=== PATIENT | female | born 1985 | race Hispanic/Latino ===

== ENCOUNTER 2018-12-27 14:20 | Observation (INO) | payer MEDICAID, OTHER ==
[2018-12-27] MEDS ORDERED: Dexamethasone 4 mg/1 ml ONE (15:15)
[2018-12-27 15:29] LABS: BASO # 0.1 K/uL (0.0-0.2); BASO % 0.8 % (0.0-2.0); EOS # 0.3 K/uL (0.0-0.7); EOS % 2.2 % (0.0-4.0); HEMOGLOBIN 12.5 g/dL (11.0-16.0); LYMPH # 2.5 K/uL (1.0-4.3); LYMPH % 19.3 % (20.0-40.0); MEAN CELL VOLUME 95.9 fL (81.0-99.0); MEAN CORPUSCULAR HGB CONC 32.4 g/dL (33.0-37.0); MEAN PLATELET VOLUME 8.3 fL (7.2-11.7); MONO # 0.8 K/uL (0.0-0.8); MONO % 6.3 % (0.0-10.0); NEUT # 9.4 K/uL (1.8-7.0); NEUT % 71.4 % (50.0-75.0); NRBC % 0.1 % (0.0-2.0); RBC 4.04 Mil/uL (3.80-5.20); RED CELL DISTRIBUTION WIDTH 13.1 % (11.5-14.5); WHITE BLOOD COUNT 13.2 K/uL (4.8-10.8)
[2018-12-27 15:38] LABS: PROTHROMBIN TIME 10.8 SECONDS (9.7-12.2)
[2018-12-27 15:49] LABS: INFLUENZA A B NEGATIVE FOR FLU A/B (NEGATIVE)
[2018-12-27 15:50] LABS: ALB/GLOB RATIO 1.3 (1.0-2.1); ALBUMIN 4.3 g/dL (3.5-5.0); ALT/SGPT 15 U/L (9-52); AST/SGOT 21 U/L (14-36); BLOOD UREA NITROGEN 12 mg/dL (7-17); CALCIUM 9.2 mg/dl (8.6-10.4); GFR NON-AFRICAN AMERICAN > 60
[2018-12-27] MEDS ORDERED: Iodixanol 320 MG/ML 100 ML BOTTLE IV ONE (16:32)
--- NOTE | 2018-12-27 17:07 | C.PDOC ---
History Of Present Illness 33 y/o female presents to the ER complaining of sore throat with associated right sided neck swelling which has been present for the past 2 weeks. Patient states that she noticed tonsillar swelling and exudates 2 weeks ago. At the [facility], she did not seek any medical evaluation because she does not have insurance. She thought the symptoms would resolve on their own. However, she notes that she has persistent right sided neck swelling which is making it difficult for her to swallow solid foods and fully open her mouth. Last night, patient had some difficulty breathing, but is unsure if that was due to anxiety or the swelling. Denies having fever, chills, headache, dizziness, visual changes, difficulty breathing, cough, nausea, vomiting, abdominal pain, or any other associated symptoms. Time Seen by Provider: 12/27/18 14:26 Chief Complaint (Nursing): ENT Problem History Per: Patient History/Exam Limitations: None Onset/Duration Of Symptoms: Days Current Symptoms Are (Timing): Still Present Severity: Moderate Past Medical History Reviewed: Historical Data, Nursing Documentation, Vital Signs Vital Signs: Last Vital Signs Temp 98.3 F 12/27/18 14:34 Pulse 77 12/27/18 14:34 Resp 18 12/27/18 14:34 BP 111/65 12/27/18 14:34 Pulse Ox 99 12/27/18 14:34 - Medical History PMH: No Chronic Diseases Surgical History: No Surg Hx Family History: States: No Known Family Hx - Social History Hx Alcohol Use: No Hx Substance Use: No Review Of Systems Except As Marked, All Systems Reviewed And Found Negative. Constitutional: Negative for: Fever, Chills Eyes: Negative for: Vision Change ENT: Positive for: Throat Pain, Throat Swelling Cardiovascular: Negative for: Chest Pain, Palpitations, Light Headedness Respiratory: Negative for: Cough, Shortness of Breath Gastrointestinal: Negative for: Nausea, Vomiting, Abdominal Pain Musculoskeletal: Positive for: Neck Pain, Other (right sided neck swelling). Negative for: Back Pain Skin: Negative for: Rash Neurological: Negative for: Weakness, Numbness, Headache, Dizziness Physical Exam - Physical Exam Appears: Well, Non-toxic, No Acute Distress Skin: Normal Color, Warm, Dry Head: Atraumatic, Normacephalic Eye(s): bilateral: Normal Inspection, PERRL, EOMI Nose: Normal Oral Mucosa: Moist Tongue: Normal Appearing Lips: Normal Appearing Gingiva: Normal Appearing Throat: Erythema, No Drooling, Other (bilateral tonsillar swelling, no uvula deviation; unable to fully assess as patient is unwilling to fully open mouth secondary to pain) Neck: Normal ROM, Supple, Other (right sided neck swelling; no meningeal signs) Lymphatic: Adenopathy (right sided anterior cervical lymphadenopathy) Cardiovascular: Rhythm Regular Respiratory: Normal Breath Sounds Gastrointestinal/Abdominal: Soft, No Tenderness Back: Normal Inspection, No CVA Tenderness Extremity: Normal ROM, Capillary Refill (<2s) Pulses: Left Radial: Normal, Right Radial: Normal Neurological/Psych: Oriented x3, Normal Speech, Normal Motor, Normal Sensation Gait: Steady ED Course And Treatment - Laboratory Results Result Diagrams: 12/28/18 11:31 12/28/18 11:31 Lab Results: PT 10.8 SECONDS (9.7-12.2) 12/27/18 15:22 INR 1.0 12/27/18 15:22 APTT 31 SECONDS (21-34) 12/27/18 15:22 Total Bilirubin 0.4 mg/dL (0.2-1.3) 12/27/18 15:22 AST 21 U/L (14-36) 12/27/18 15:22 ALT 15 U/L (9-52) 12/27/18 15:22 Alkaline Phosphatase 52 U/L (38-126) 12/27/18 15:22 Total Protein 7.7 g/dL (6.3-8.3) 12/27/18 15:22 Albumin 4.3 g/dL (3.5-5.0) 12/27/18 15:22 Globulin 3.4 gm/dL (2.2-3.9) 12/27/18 15:22 Albumin/Globulin Ratio 1.3 (1.0-2.1) 12/27/18 15:22 12/27/18 15:22 12/27/18 15:22 O2 Sat by Pulse Oximetry: 99 (RA) Pulse Ox Interpretation: Normal Medical Decision Making Medical Decision Making: Plan: --Labs --Rapid Flu Swab --Rapid Strep Test --CT-Neck Soft Tissue with IV contrast --Dexamethasone Bloodwork reviewed, significant for leukocytosis at 13.2, otherwise unremarkable Rapid strep negative Rapid flu negative CT reveals possible early right sided peritonsillar abscess. Will consult ENT Patient reports improvement in symptoms with dexamethasone [address] Quiroz, covering Dr. Haddad, who recommends Zosyn q6h, dexamethasone for 2 more doses, q8h and admission to hospitalist for Dr. Haddad to evaluate patient in the morning. Diet as tolerated by patient. [address] Travis who accepted patient for inpatient observation on regular floor with diagnosis of peritonsillar abscess. Patient notified of change in disposition. Resting comfortably in stretcher in NAD at this time, eating potato chips without difficulty. No drooling or respiratory difficulties. VSS. 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 - Scribe Statement The provider has reviewed the documentation as recorded by the Orvillee Virgil [place] Provider Attestation All medical record entries made by the Scribe were at my direction and personally dictated by me. I have reviewed the chart and agree that the record accurately reflects my personal performance of the history, physical exam, medical decision making, and the department course for this patient. I have also personally directed, reviewed, and agree with the discharge instructions and disposition.
--- NOTE | 2018-12-27 18:03 | CT ---
Date of service: 12/27/2018 PROCEDURE: CT NECK WITH CONTRAST HISTORY: Sore throat. Rule out abscess. COMPARISON: None available. TECHNIQUE: CT of the neck with intravenous contrast. Coronal and sagittal reformats generated. Intravenous contrast dose: Radiation dose: Total exam DLP = 323.73 mGy-cm. This CT exam was performed using one or more of the following dose reduction techniques: Automated exposure control, adjustment of the mA and/or kV according to patient size, and/or use of iterative reconstruction technique. FINDINGS: NASOPHARYNX: Unremarkable. SUPRAHYOID NECK: Mild enlarged palatine tonsils right somewhat greater than the left side which encroach medially slightly reducing the oropharyngeal airway.. There is a small approximately 13 mm x 3.3 mm elliptical-curvilinear shaped area of low attenuation adjacent to the right palatine tonsil best seen on axial series 2, image number 23 through 26.. Early peritonsillar abscess formation cannot be excluded. Clinical correlation recommended. There enlargement of the lingual tonsils which encroach posteriorly and inferiorly into the vallecula. Free margin of the epiglottis unremarkable.. INFRAHYOID NECK: Unremarkable larynx, hypopharynx, and supraglottic space. Vocal cords intact. MASS: None. GLANDS: Parotid and submandibular glands unremarkable. Normal size thyroid gland, without nodule. LYMPH NODES: There is an enlarged right-sided level 2 lymph node (right jugulodigastric region) which measures approximately 2.4 x 1.2 cm. Smaller left-sided lung jugular digastric lymph node present measuring approximately 1.5 x 7.1 cm. Few small level 1 lymph nodes are present. CERVICAL SPINE: No fracture or focal lesion. . Very minor early degenerative spondylosis present. VASCULAR STRUCTURES: Unremarkable. OTHER FINDINGS: None. IMPRESSION: There is mild enlargement of the palatine tonsils right slightly greater than left. Questionable small phlegmon or possibly early right-sided peritonsillar abscess as detailed above. Enlarged right-sided jugulodigastric lymph node as above..
[2018-12-27] MEDS ORDERED: Sodium Chloride 0.9% 1,000 ML IV SCH (19:00)
[2018-12-27] MEDS: Piperacillin/Tazobact 3.375 GM in Sodium Chloride 100 ML IVPB SCH (21:00)
[2018-12-27] MEDS: Dextrose 5%/0.45% NS 1,000 ML IV SCH (21:00)
[2018-12-27] MEDS: Dexamethasone 4 mg/1 ml IVP SCH (23:52)
--- NOTE | 2018-12-28 00:48 | CP.PCM.HP ---
<Roman Costa - Last Filed: 12/28/18 00:48> History of Present Illness - History of Present Illness History of Present Illness: PGY-1 History and Physical for Dr. Travis Patient is a 33 year old female with no significant PMHx who presents with chief complaint of sore throat with dysphagia. Patient states that on 12/14 she woke with a sore throat which as she describes, felt like strep throat. Due to recent job change and subsequent loss of insurance, she did not see a doctor at that time and has continued to have persistent symptoms since that time. She has had persistent sore throat with dysphagia that comes and goes, and has pain with speaking. She has at times had subjective fevers/chills, but did not have a temp when taken at home. Due to symptoms continuing to persist, patient presented to ER to seek treatment. PMHx: No significant PMHx Surgeries: Denies All: NKA Medications: No home meds Social: Denies tobacco, drug use. Occasional social alcohol. Family Hx: Noncontributory PMD: None Code: Full Code Present on Admission - Present on Admission Any Indicators Present on Admission: No Review of Systems - Constitutional Constitutional: absent: Chills, Fever - EENT Eyes: absent: Blurred Vision, Diplopia Ears: absent: Decreased Hearing, Dizziness Nose/Mouth/Throat: Change in Voice, Sore Throat, Throat Swelling (Significant throat swelling on the R side externally yesterday which subsided). absent: Nasal Congestion, Nasal Discharge, Sinus Pressure, Tongue Swelling, Neck Pain - Cardiovascular Cardiovascular: absent: Chest Pain, Dyspnea, Palpitations - Respiratory Respiratory: Cough. absent: Dyspnea - Gastrointestinal Gastrointestinal: absent: Constipation, Diarrhea, Nausea, Vomiting - Musculoskeletal Musculoskeletal: absent: Back Pain, Neck Pain - Neurological Neurological: absent: Dizziness, Numbness, Focal Weakness - Psychiatric Psychiatric: absent: Anxiety, Depression - Hematologic/Lymphatic Hematologic: absent: Easy Bleeding, Easy Bruising Past Patient History - Past Social History Smoking Status: Never Smoked - PSYCHIATRIC Hx Substance Use: No - SURGICAL HISTORY Hx Surgeries: No Meds Allergies/Adverse Reactions: Allergies Allergy/AdvReac Type Severity Reaction Status Date / Time No Known Allergies Allergy Unverified 12/27/18 14:37 Physical Exam - Constitutional Appears: Non-toxic, No Acute Distress - Head Exam Head Exam: ATRAUMATIC, NORMOCEPHALIC - Eye Exam Eye Exam: EOMI, Normal appearance - ENT Exam ENT Exam: Mucous Membranes Moist - Neck Exam Neck exam: Positive for: Full Rom. Negative for: Lymphadenopathy Additional comments: Increased fullness R para-tracheal - Respiratory Exam Respiratory Exam: Clear to Auscultation Bilateral, NORMAL BREATHING PATTERN. absent: Rhonchi, Wheezes - Cardiovascular Exam Cardiovascular Exam: REGULAR RHYTHM. absent: +S1, +S2 - GI/Abdominal Exam GI & Abdominal Exam: Normal Bowel Sounds, Soft. absent: Tenderness - Extremities Exam Extremities exam: Positive for: normal inspection. Negative for: pedal edema, tenderness - Neurological Exam Neurological exam: Alert, CN II-XII Intact, Oriented x3 - Psychiatric Exam Psychiatric exam: Normal Affect, Normal Mood - Skin Skin Exam: Dry, Intact, Normal Color Results - Vital Signs Recent Vital Signs: Last Vital Signs Temp 98.0 F 12/27/18 20:56 Pulse 102 H 12/27/18 20:56 Resp 20 12/27/18 20:56 BP 117/72 12/27/18 20:56 Pulse Ox 98 12/27/18 20:56 - Labs Result Diagrams: 12/27/18 15:22 12/27/18 15:22 Labs: Laboratory Results - last 24 hr 12/27/18 12/27/18 12/27/18 15:22 15:22 15:22 WBC 13.2 H RBC 4.04 Hgb 12.5 Hct 38.7 MCV 95.9 MCH 31.0 MCHC 32.4 L RDW 13.1 Plt Count 328 MPV 8.3 Neut % (Auto) 71.4 Lymph % (Auto) 19.3 L [place] % (Auto) 6.3 Eos % (Auto) 2.2 Baso % (Auto) 0.8 Neut # (Auto) 9.4 H Lymph # (Auto) 2.5 [place] # (Auto) 0.8 Eos # (Auto) 0.3 Baso # (Auto) 0.1 PT 10.8 INR 1.0 APTT 31 Sodium 137 Potassium 4.9 Chloride 102 Carbon Dioxide 26 Anion Gap 13 BUN 12 Creatinine 0.8 Est GFR ( Amer) > 60 Est GFR (Non-Af Amer) > 60 Random Glucose 87 Calcium 9.2 Total Bilirubin 0.4 AST 21 ALT 15 Alkaline Phosphatase 52 Total Protein 7.7 Albumin 4.3 Globulin 3.4 Albumin/Globulin Ratio 1.3 Influenza Typ A,B (EIA) Grp A Beta Strep Ag 12/27/18 15:22 WBC RBC Hgb Hct MCV MCH MCHC RDW Plt Count MPV Neut % (Auto) Lymph % (Auto) [place] % (Auto) Eos % (Auto) Baso % (Auto) Neut # (Auto) Lymph # (Auto) [place] # (Auto) Eos # (Auto) Baso # (Auto) PT INR APTT Sodium Potassium Chloride Carbon Dioxide Anion Gap BUN Creatinine Est GFR ( Amer) Est GFR (Non-Af Amer) Random Glucose Calcium Total Bilirubin AST ALT Alkaline Phosphatase Total Protein Albumin Globulin Albumin/Globulin Ratio Influenza Typ A,B (EIA) Negative for flu a/b Grp A Beta Strep Ag Negative Assessment & Plan - Assessment and Plan (Free Text) Assessment: Phlegmon vs peritonsilar abscess on CT soft tissue neck -CT soft tissue neck 12/27: There is mild enlargement of the palatine tonsils right slightly greater than left. Questionable small phlegmon or possibly early right-sided peritonsillar abscess. Enlarged right-sided jugulodigastric lymph node -ENT consulted, Dr. Haddad - f/u recs --NPO after midnight for possible procedure -WBC 13.2, afebrile -Throat culture, blood culture - f/u -Dexamethasone 10 mg IVP Q8 x2 doses -D5/.45NS @100cc/hr Abx: -Zosyn 3/375 gm IVPB Q6 PPx -DVT: Heparin 5000 U SC Q12 Assessment and plan discussed with Dr. Angy Costa, PGY-1 <Urbano Travis - Last Filed: 12/28/18 06:27> Results - Vital Signs Recent Vital Signs: Last Vital Signs Temp 98.8 F 12/28/18 00:13 Pulse 84 12/28/18 00:13 Resp 20 12/28/18 00:13 BP 114/71 12/28/18 00:13 Pulse Ox 99 12/28/18 01:35 - Labs Result Diagrams: 12/27/18 15:22 12/27/18 15:22 Labs: Laboratory Results - last 24 hr 12/27/18 12/27/18 12/27/18 15:22 15:22 15:22 WBC 13.2 H RBC 4.04 Hgb 12.5 Hct 38.7 MCV 95.9 MCH 31.0 MCHC 32.4 L RDW 13.1 Plt Count 328 MPV 8.3 Neut % (Auto) 71.4 Lymph % (Auto) 19.3 L [place] % (Auto) 6.3 Eos % (Auto) 2.2 Baso % (Auto) 0.8 Neut # (Auto) 9.4 H Lymph # (Auto) 2.5 [place] # (Auto) 0.8 Eos # (Auto) 0.3 Baso # (Auto) 0.1 PT 10.8 INR 1.0 APTT 31 Sodium 137 Potassium 4.9 Chloride 102 Carbon Dioxide 26 Anion Gap 13 BUN 12 Creatinine 0.8 Est GFR ( Amer) > 60 Est GFR (Non-Af Amer) > 60 Random Glucose 87 Calcium 9.2 Total Bilirubin 0.4 AST 21 ALT 15 Alkaline Phosphatase 52 Total Protein 7.7 Albumin 4.3 Globulin 3.4 Albumin/Globulin Ratio 1.3 Influenza Typ A,B (EIA) Grp A Beta Strep Ag 12/27/18 15:22 WBC RBC Hgb Hct MCV MCH MCHC RDW Plt Count MPV Neut % (Auto) Lymph % (Auto) [place] % (Auto) Eos % (Auto) Baso % (Auto) Neut # (Auto) Lymph # (Auto) [place] # (Auto) Eos # (Auto) Baso # (Auto) PT INR APTT Sodium Potassium Chloride Carbon Dioxide Anion Gap BUN Creatinine Est GFR ( Amer) Est GFR (Non-Af Amer) Random Glucose Calcium Total Bilirubin AST ALT Alkaline Phosphatase Total Protein Albumin Globulin Albumin/Globulin Ratio Influenza Typ A,B (EIA) Negative for flu a/b Grp A Beta Strep Ag Negative Assessment & Plan - Date & Time Date: 12/28/18 (I have seen and examined the patient. I agree with the findings and plan of care as documented by Dr. Costa. Patient with peritonsillar abscess. Dysphagia. Consult to ENT. Janeen for now. Dexamethasone given in ED. NPO. IVF. Monitor for acute changes.) Time: 06:26 Attending/Attestation - Attestation I have personally seen and examined this patient.: Yes I have fully participated in the care of the patient.: Yes I have reviewed all pertinent clinical information: Yes
[2018-12-28] MEDS: Piperacillin/Tazobact 3.375 GM in Sodium Chloride 100 ML IVPB SCH ×4 (02:43→18:32)
[2018-12-28] MEDS ORDERED: Lidocaine 1%/Epinephrine 1:100000 30 ml vial IJ ONE (07:45)
--- NOTE | 2018-12-28 08:26 | CP.PCM.PN ---
<Delfin Najera - Last Filed: 12/28/18 19:56> Subjective - Date & Time of Evaluation Date of Evaluation: 12/28/18 Time of Evaluation: 08:26 - Subjective Subjective: PGY-1 Medicine Progress Note for Dr. Doyle Patient seen and examined at bedside s/p peritonsillar abscess drainage. No acute overnight events reported. Patient in distress from pain, having difficulty swallowing or talking due to pain. No sob, swelling, or airway compromise noted. Patient given morphine x 1 for pain and later reevaluated, pain more under control. Per Dr. Haddad, patient set for OR tomorrow for tonsil removal. Objective - Vital Signs/Intake and Output Vital Signs (last 24 hours): Temp Pulse Resp BP Pulse Ox 98.8 F 84 20 114/71 99 12/28/18 00:13 12/28/18 00:13 12/28/18 00:13 12/28/18 00:13 12/28/18 05:35 Intake and Output: 12/28/18 12/28/18 06:59 18:59 Intake Total 800 Balance 800 - Medications Medications: Current Medications Heparin Sodium (Porcine) (Heparin) 5,000 units SC Q12 [facility] Last Admin: 12/27/18 21:05 Dose: Not Given Piperacillin Sod/Tazobactam (Sod 3.375 gm/ Sodium Chloride) 100 mls @ 200 mls/hr IVPB Q6H [facility]; Protocol Last Admin: 12/28/18 02:43 Dose: 200 mls/hr Dextrose/Sodium Chloride (Dextrose 5%/0.45% Ns 1000 Ml) 1,000 mls @ 100 mls/hr IV .Q10H [facility] Last Admin: 12/27/18 21:00 Dose: 100 mls/hr Influenza Virus Vaccine (Flucelvax Quad [id number] Syr) 60 mcg IM .ONCE ONE Stop: 12/29/18 10:01 Pneumococcal Polyvalent Vaccine (Pneumovax 23 Vaccine) 0.5 ml IM .ONCE ONE Stop: 12/29/18 10:01 - Labs Labs: 12/27/18 15:22 12/27/18 15:22 PT 10.8 SECONDS (9.7-12.2) 12/27/18 15:22 INR 1.0 12/27/18 15:22 APTT 31 SECONDS (21-34) 12/27/18 15:22 - Constitutional Appears: Non-toxic, No Acute Distress - Head Exam Head Exam: ATRAUMATIC, NORMAL INSPECTION, NORMOCEPHALIC - Eye Exam Eye Exam: EOMI, Normal appearance Pupil Exam: NORMAL ACCOMODATION - ENT Exam ENT Exam: Mucous Membranes Moist, Normal Exam Additional comments: R peritonsillar erythema at site of drainage, no purulent drainage, no airway compromise, no uvular deviation - Neck Exam Neck Exam: Full ROM, Normal Inspection. absent: Lymphadenopathy, Tenderness - Respiratory Exam Respiratory Exam: Clear to Ausculation Bilateral, NORMAL BREATHING PATTERN. absent: Accessory Muscle Use, Rales, Rhonchi, Wheezes, Respiratory Distress, Stridor - Cardiovascular Exam Cardiovascular Exam: REGULAR RHYTHM, +S1, +S2 - GI/Abdominal Exam GI & Abdominal Exam: Soft, Normal Bowel Sounds. absent: Distended, Firm, Guarding, Rigid, Tenderness, Rebound - Extremities Exam Extremities Exam: Full ROM, Normal Capillary Refill, Normal Inspection. absent: Calf Tenderness, Pedal Edema - Back Exam Back Exam: NORMAL INSPECTION - Neurological Exam Neurological Exam: Alert, Awake, Oriented x3 - Psychiatric Exam Psychiatric exam: Normal Affect, Normal Mood - Skin Skin Exam: Dry, Intact, Normal Color, Warm Assessment and Plan - Assessment and Plan (Free Text) Assessment: 33 year old F with no pmhx presenting with R sided peritonsilar abscess s/p drainage. Scheduled for OR tomorrow with Dr. Haddad for tonsil rem oval. Plan: Peritonsilar abscess s/p drainage -CT soft tissue neck (12/27): There is mild enlargement of the palatine tonsils right slightly greater than left. Questionable small phlegmon or possibly early right-sided peritonsillar abscess. Enlarged right-sided jugulodigastric lymph node -Throat culture negative for Group A strep infection -f/u Blood culture -ENT recs (Dr. Haddad) appreciated -pt scheduled for OR tomorrow for tonsil removal -NPO after MN for OR tomorrow -heparin held -CXR, EKG for preop clearance -Zosyn 3.375 gm IVPB Q6 [facility] -morphine 2 q6 prn for pain PPx, Diet Disposition -DVT: Heparin 5000 U SC I18--iuvf for OR -GI ppx: not indicated -Diet: NPO after MN Case discussed with Dr. Vivek Najera DO, PGY-1 <Carmen Doyle V - Last Filed: 12/28/18 23:29> Objective - Vital Signs/Intake and Output Vital Signs (last 24 hours): Temp Pulse Resp BP Pulse Ox 97.9 F 77 20 114/67 99 12/28/18 16:00 12/28/18 16:00 12/28/18 16:00 12/28/18 16:00 12/28/18 19:33 - Medications Medications: Current Medications Heparin Sodium (Porcine) (Heparin) 5,000 units SC Q12 [facility] Last Admin: 12/28/18 09:03 Dose: Not Given Piperacillin Sod/Tazobactam (Sod 3.375 gm/ Sodium Chloride) 100 mls @ 200 mls/hr IVPB Q6H [facility]; Protocol Last Admin: 12/28/18 18:32 Dose: 200 mls/hr Dextrose/Sodium Chloride (Dextrose 5%/0.45% Ns 1000 Ml) 1,000 mls @ 100 mls/hr IV .Q10H [facility] Last Admin: 12/28/18 21:29 Dose: 100 mls/hr Influenza Virus Vaccine (Flucelvax Quad [id number] Syr) 60 mcg IM .ONCE ONE Stop: 12/29/18 10:01 Morphine Sulfate (Morphine) 2 mg IVP Q6 PRN PRN Reason: Pain, Mild (1-3) Last Admin: 12/28/18 21:21 Dose: 2 mg Pneumococcal Polyvalent Vaccine (Pneumovax 23 Vaccine) 0.5 ml IM .ONCE ONE Stop: 12/29/18 10:01 - Labs Labs: 12/28/18 11:31 12/28/18 11:31 PT 10.8 SECONDS (9.7-12.2) 12/27/18 15:22 INR 1.0 12/27/18 15:22 APTT 31 SECONDS (21-34) 12/27/18 15:22 Attending/Attestation - Attestation I have personally seen and examined this patient.: Yes I have fully participated in the care of the patient.: Yes I have reviewed all pertinent clinical information, including history, physical exam and plan: Yes Notes (Text): Patient seen, examined and case discussed with day-time resident. Patient observed for peritonsilar abscess; underwent incisional drainage by ENT; re-evaluated in morning; recommended by tonsil removal by ENT; scheduled for tomorrow. Patient is on empiric IV abx to cover. Overnight, patient had received Decadron 10mg IV, negative Strep, chest xray appears benign; official report pending. Pending blood cultures. Suspect increasing leukocytosis by Iv steroid received overnight. Will continue to follow-up patient in conjunction with ENT. Patient has intermediate risk for intermediate procedure. Patient does not have prior medical history. Surgery and anesthesia discuss risk and benefits prior to OR. preoperative/intraoperative/postoperative managment per surgery.
[2018-12-28] MEDS: Dexamethasone 4 mg/1 ml IVP SCH (08:45)
[2018-12-28 11:44] LABS: BASO % 0.2 % (0.0-2.0); HEMOGLOBIN 12.4 g/dL (11.0-16.0); LYMPH # 0.9 K/uL (1.0-4.3); LYMPH % 6.1 % (20.0-40.0); MEAN CELL VOLUME 95.6 fL (81.0-99.0); MEAN CORPUSCULAR HEMOGLOBIN 31.2 pg (27.0-31.0); MEAN CORPUSCULAR HGB CONC 32.7 g/dL (33.0-37.0); MEAN PLATELET VOLUME 8.5 fL (7.2-11.7); MONO # 0.2 K/uL (0.0-0.8); MONO % 1.5 % (0.0-10.0); NEUT # 14.2 K/uL (1.8-7.0); NEUT % 92.2 % (50.0-75.0); PLATELET COUNT 295 K/uL (130-400); RBC 3.97 Mil/uL (3.80-5.20); WHITE BLOOD COUNT 15.3 K/uL (4.8-10.8)
[2018-12-28] MEDS: Dextrose 5%/0.45% NS 1,000 ML IV SCH ×2 (11:47→21:29)
[2018-12-28 12:17] LABS: ALB/GLOB RATIO 1.3 (1.0-2.1); ALT/SGPT 9 U/L (9-52); AST/SGOT 19 U/L (14-36); BLOOD UREA NITROGEN 10 mg/dL (7-17); GFR NON-AFRICAN AMERICAN > 60
[2018-12-28 12:29] LABS: LYMPHOCYTE 3 % (20-40); NEUTROPHIL 97 % (50-75); PLATELET ESTIMATE NORMAL (NORMAL); TOTAL CELLS COUNTED 100
--- NOTE | 2018-12-28 14:27 | OP ---
PROCEDURE DATE: 12/28/2018 PREOPERATIVE DIAGNOSIS: Right peritonsillar abscess with incision and drainage of right peritonsillar abscess. POSTOPERATIVE DIAGNOSIS: Right peritonsillar abscess with incision and drainage of right peritonsillar abscess. FINDINGS: Right peritonsillar abscess. SURGEON: Chuck Haddad MD DESCRIPTION OF PROCEDURE: The patient was placed in a seated position. The right peritonsillar area was injected with lidocaine with epinephrine. A #11 blade was used to make an incision in the right peritonsillar area. Blunt dissection was done. Pus was noted to be coming out. Bleeding was controlled with time. The patient tolerated the procedure well. Chuck Haddad MD
[2018-12-29] MEDS: Piperacillin/Tazobact 3.375 GM in Sodium Chloride 100 ML IVPB SCH ×3 (01:30→12:29)
[2018-12-29 05:19] LABS: BASO # 0.1 K/uL (0.0-0.2); BASO % 0.6 % (0.0-2.0); EOS # 0.1 K/uL (0.0-0.7); EOS % 0.7 % (0.0-4.0); HEMOGLOBIN 11.3 g/dL (11.0-16.0); LYMPH # 3.9 K/uL (1.0-4.3); MEAN CELL VOLUME 95.6 fL (81.0-99.0); MEAN CORPUSCULAR HEMOGLOBIN 30.5 pg (27.0-31.0); MEAN CORPUSCULAR HGB CONC 31.9 g/dL (33.0-37.0); MEAN PLATELET VOLUME 8.3 fL (7.2-11.7); MONO # 0.8 K/uL (0.0-0.8); NEUT # 7.8 K/uL (1.8-7.0); NEUT % 61.7 % (50.0-75.0); RBC 3.7 Mil/uL (3.80-5.20); RED CELL DISTRIBUTION WIDTH 13.1 % (11.5-14.5); WHITE BLOOD COUNT 12.6 K/uL (4.8-10.8)
[2018-12-29 05:47] LABS: ALB/GLOB RATIO 1.2 (1.0-2.1); ALBUMIN 3.5 g/dL (3.5-5.0); ALT/SGPT 17 U/L (9-52); AST/SGOT 15 U/L (14-36); BLOOD UREA NITROGEN 8 mg/dL (7-17); CALCIUM 8.6 mg/dl (8.6-10.4); GFR NON-AFRICAN AMERICAN > 60
[2018-12-29] MEDS: Dextrose 5%/0.45% NS 1,000 ML IV SCH ×2 (06:23→12:43)
[2018-12-29] MEDS ORDERED: Dexamethasone 4 mg/1 ml ONE (08:04)
[2018-12-29] MEDS ORDERED: Propofol 10 mg/ml Inj (20 ML) ONE ×2 (08:12)
[2018-12-29] MEDS: HYDROmorphone 0.5 mg/0.5 ml ISec IVP PRN ×2 (08:53→09:05)
[2018-12-29] MEDS ORDERED: Acetaminophen/Codeine elixir 120-12mg/5ml PO PRN (09:20)
--- NOTE | 2018-12-29 09:37 | RAD ---
Date of service: 12/28/2018 HISTORY: preop clearance COMPARISON: No prior. FINDINGS: LUNGS: No active pulmonary disease. PLEURA: No significant pleural effusion identified, no pneumothorax apparent. CARDIOVASCULAR: No aortic atherosclerotic calcification present. Normal cardiac size. No pulmonary vascular congestion. OSSEOUS STRUCTURES: No significant abnormalities. VISUALIZED UPPER ABDOMEN: Normal. OTHER FINDINGS: None. IMPRESSION: No active disease.
[2018-12-29] MEDS ORDERED: Pneumococcal 23-Valent Vaccine IM ONE (10:00)
[2018-12-29] MEDS ORDERED: Influenza Vaccine 60 mcg/0.5 mL SYR (4YR UP) IM ONE (10:00)
--- NOTE | 2018-12-29 10:27 | CP.PCM.PN ---
Objective - Vital Signs/Intake and Output Vital Signs (last 24 hours): Temp Pulse Resp BP Pulse Ox 97.5 F L 69 8 L 130/87 96 12/29/18 09:45 12/29/18 09:45 12/29/18 09:45 12/29/18 09:45 12/29/18 09:45 Intake and Output: 12/29/18 12/29/18 06:59 18:59 Intake Total 1300 Balance 1300 - Medications Medications: Current Medications Acetaminophen/Codeine Phosphate (Tylenol/Codeine Elixir) 5 ml PO Q6 PRN PRN Reason: Pain, moderate (4-7) Stop: 01/05/19 09:21 Heparin Sodium (Porcine) (Heparin) 5,000 units SC Q12 [facility] Last Admin: 12/28/18 09:03 Dose: Not Given Hydromorphone HCl (Dilaudid) 0.5 mg IVP Q15M PRN PRN Reason: Pain, moderate (4-7) Stop: 12/29/18 10:47 Last Admin: 12/29/18 09:05 Dose: 0.5 mg Piperacillin Sod/Tazobactam (Sod 3.375 gm/ Sodium Chloride) 100 mls @ 200 mls/hr IVPB Q6H [facility]; Protocol Last Admin: 12/29/18 06:23 Dose: 200 mls/hr Dextrose/Sodium Chloride (Dextrose 5%/0.45% Ns 1000 Ml) 1,000 mls @ 100 mls/hr IV .Q10H [facility] Last Admin: 12/29/18 06:23 Dose: 100 mls/hr Metoclopramide HCl (Reglan) 10 mg IVP ONCE PRN PRN Reason: Nausea/Vomiting Stop: 12/29/18 10:47 Morphine Sulfate (Morphine) 2 mg IVP Q6 PRN PRN Reason: Pain, Mild (1-3) Last Admin: 12/29/18 10:24 Dose: 2 mg Ondansetron HCl (Zofran Inj) 4 mg IVP ONCE PRN PRN Reason: Nausea/Vomiting Stop: 12/29/18 10:47 - Labs Labs: 12/29/18 05:15 12/29/18 05:15 PT 10.8 SECONDS (9.7-12.2) 12/27/18 15:22 INR 1.0 12/27/18 15:22 APTT 31 SECONDS (21-34) 12/27/18 15:22
[2018-12-29 16:17] VITALS: BP 123/64; PULSE 65; RESP 20; TEMP 98.4; O2SAT 100
--- NOTE | 2018-12-29 17:56 | CP.PCM.DIS ---
<Kae Hinojosa - Last Filed: 12/29/18 17:52> Provider - Provider Date of Admission: 12/27/18 19:31 Attending physician: Carmen Doyle DO Consults: 12/27/18 18:49 Otolaryngology Consult Routine Consulting Provider: Chuck Haddad Consulting Physician: Chuck Haddad Reason for Consult: Peritonsillar Abscess, Leukocytosis Time Spent in preparation of Discharge (in minutes): 40 Hospital Course - Lab Results Lab Results: Micro Results 12/27/18 19:45 Blood Blood Culture - Preliminary NO GROWTH AFTER 24 HOURS 12/27/18 19:40 Blood Blood Culture - Preliminary NO GROWTH AFTER 24 HOURS 12/27/18 15:22 Throat Group A Strep Throat Culture - Final NO BETA STREP GROUP A ISOLATED. Most Recent Lab Values WBC 12.6 K/uL (4.8-10.8) H 12/29/18 05:15 RBC 3.70 Mil/uL (3.80-5.20) L 12/29/18 05:15 Hgb 11.3 g/dL (11.0-16.0) 12/29/18 05:15 Hct 35.4 % (34.0-47.0) 12/29/18 05:15 MCV 95.6 fL (81.0-99.0) 12/29/18 05:15 MCH 30.5 pg (27.0-31.0) 12/29/18 05:15 MCHC 31.9 g/dL (33.0-37.0) L 12/29/18 05:15 RDW 13.1 % (11.5-14.5) 12/29/18 05:15 Plt Count 275 K/uL (130-400) 12/29/18 05:15 MPV 8.3 fL (7.2-11.7) 12/29/18 05:15 Neut % (Auto) 61.7 % (50.0-75.0) 12/29/18 05:15 Lymph % (Auto) 31.0 % (20.0-40.0) 12/29/18 05:15 Amite % (Auto) 6.0 % (0.0-10.0) 12/29/18 05:15 Eos % (Auto) 0.7 % (0.0-4.0) 12/29/18 05:15 Baso % (Auto) 0.6 % (0.0-2.0) 12/29/18 05:15 Neut # (Auto) 7.8 K/uL (1.8-7.0) H 12/29/18 05:15 Lymph # (Auto) 3.9 K/uL (1.0-4.3) 12/29/18 05:15 Amite # (Auto) 0.8 K/uL (0.0-0.8) 12/29/18 05:15 Eos # (Auto) 0.1 K/uL (0.0-0.7) 12/29/18 05:15 Baso # (Auto) 0.1 K/uL (0.0-0.2) 12/29/18 05:15 Neutrophils % (Manual) 97 % (50-75) H 12/28/18 11:31 Lymphocytes % (Manual) 3 % (20-40) L 12/28/18 11:31 Monocytes % (Manual) TEST NOT PERFORMED 12/28/18 11:31 Platelet Estimate Normal (NORMAL) 12/28/18 11:31 RBC Morphology Normal 12/28/18 11:31 PT 10.8 SECONDS (9.7-12.2) 12/27/18 15:22 INR 1.0 12/27/18 15:22 APTT 31 SECONDS (21-34) 12/27/18 15:22 Sodium 138 mmol/L (132-148) 12/29/18 05:15 Potassium 5.0 mmol/L (3.6-5.2) 12/29/18 05:15 Chloride 107 mmol/L (98-107) 12/29/18 05:15 Carbon Dioxide 25 mmol/L (22-30) 12/29/18 05:15 Anion Gap 11 (10-20) 12/29/18 05:15 BUN 8 mg/dL (7-17) 12/29/18 05:15 Creatinine 0.7 mg/dL (0.7-1.2) 12/29/18 05:15 Est GFR ( Amer) > 60 12/29/18 05:15 Est GFR (Non-Af Amer) > 60 12/29/18 05:15 Random Glucose 119 mg/dL (65-105) H D 12/29/18 05:15 Calcium 8.6 mg/dl (8.6-10.4) 12/29/18 05:15 Total Bilirubin 0.3 mg/dL (0.2-1.3) 12/29/18 05:15 AST 15 U/L (14-36) 12/29/18 05:15 ALT 17 U/L (9-52) 12/29/18 05:15 Alkaline Phosphatase 40 U/L (38-126) 12/29/18 05:15 Total Protein 6.4 g/dL (6.3-8.3) 12/29/18 05:15 Albumin 3.5 g/dL (3.5-5.0) 12/29/18 05:15 Globulin 2.9 gm/dL (2.2-3.9) 12/29/18 05:15 Albumin/Globulin Ratio 1.2 (1.0-2.1) 12/29/18 05:15 Urine HCG, Qual Negative (NEGATIVE) 12/29/18 01:47 Influenza Typ A,B (EIA) Negative for flu a/b (NEGATIVE) 12/27/18 15:22 Grp A Beta Strep Ag Negative (NEGATIVE) 12/27/18 15:22 - Hospital Course Hospital Course: Patient is a 33 year old female with no significant PMHx who presents with chief complaint of sore throat with dysphagia. Patient states that on 12/14 she woke with a sore throat which as she describes, felt like strep throat. Due to recent job change and subsequent loss of insurance, she did not see a doctor at that time and has continued to have persistent symptoms since that time. She has had persistent sore throat with dysphagia that comes and goes, and has pain with speaking. She has at times had subjective fevers/chills, but did not have a temp when taken at home. Due to symptoms continuing to persist, patient presented to ER to seek treatment. PMHx: No significant PMHx Surgeries: Denies All: NKA Medications: No home meds Social: Denies tobacco, drug use. Occasional social alcohol. Family Hx: Noncontributory PMD: None Code: Full Code Hospital Course: Patient presented to the ER for sore throat and dysphagia. CT soft tissue of the neck showed mild enlargement of the palatine tonsils right slightly greater than left. Questionable small phlegmon or possibly early right-sided peritonsillar abscess. Enlarged right-sided jugulodigastric lymph node. ENT specialist, Dr. Haddad was consulted. Patient was started on Zosyn and given 2 doses of dexamethasone. Patient was diagnosed with a peritonsilar abscess. Throat culture was negative for group A infection and blood cultures were negative. Patient was scheduled for a tonsillectomy with Dr. Haddad 12/29/18. Patient was seen and evaluated s/p procedure. Patient stated although her pain was a 4/10 she was feeling significantly better. Patient states she was ready to go home. Patient also stated she was starting to have vaginal pruritis as she normally does have yeast infection after taking antibiotics. Patient was given Diflucan 100mg po dose once prior to discharge. Spoke with Dr. Haddad who stated patient was stable for discharge and to continue with oral antibiotics at home. Discussed with patient to start Clindamycin 600mg one tablet every 6 hours for 14 days, take Motrin or Tylenol every 6 hours as needed for pain. Discussed with patient to eat yogurt daily or take a probiotic twice a day. Patient is also to follow up with Dr. Haddad in the office in one week. This is a summary of the patient's hospital course. Please refer to the EMR for complete details. Peritonsilar abscess s/p drainage -CT soft tissue neck (12/27): There is mild enlargement of the palatine tonsils right slightly greater than left. Questionable small phlegmon or possibly early right-sided peritonsillar abscess. Enlarged right-sided jugulodigastric lymph node -Throat culture negative for Group A strep infection -f/u Blood culture -ENT recs (Dr. Haddad) appreciated -pt scheduled for OR tomorrow for tonsil removal -NPO after MN for OR 12/29/18 -heparin held -CXR, EKG for preop clearance -Zosyn 3.375 gm IVPB Q6 FRACISCO -morphine 2 q6 prn for pain Discharge Exam - Head Exam Head Exam: ATRAUMATIC, NORMAL INSPECTION, NORMOCEPHALIC - Eye Exam Eye Exam: EOMI, Normal appearance - ENT Exam Additional comments: Limited ROM of maxilla s/p tonsillectomy - Respiratory Exam Respiratory Exam: Clear to PA & Lateral, NORMAL BREATHING PATTERN - Cardiovascular Exam Cardiovascular Exam: REGULAR RHYTHM, +S1, +S2 - GI/Abdominal Exam GI & Abdominal Exam: Normal Bowel Sounds, Soft. absent: Tenderness - Extremities Exam Extremities exam: normal inspection - Neurological Exam Neurological exam: Alert, Oriented x3 - Psychiatric Exam Psychiatric exam: Normal Affect, Normal Mood - Skin Skin Exam: Normal Color Discharge Plan - Discharge Medications Prescriptions: RX: Clindamycin [Cleocin] 500 mg PO Q6 14 Days cap - Follow Up Plan Condition: STABLE Disposition: HOME/ ROUTINE Instructions: Leukocytosis (DC), Leukocytosis (GEN), Abscess (GEN) Additional Instructions: Please continue antibiotic: Clindamycin one tablet every 6 hours for 14 days Please eat yogurt daily. Please take Motrin or Tylenol as needed for pain. Please follow up with Dr. Haddad in 1 week. Thank you for allowing us to take part in your care. Referrals: Chuck Haddad MD [Staff Provider] - <Carmen Doyle V - Last Filed: 01/01/19 12:29> Provider - Provider Date of Admission: 12/27/18 19:31 Attending physician: Carmen Doyle DO Consults: 12/27/18 18:49 Otolaryngology Consult Routine Consulting Provider: Chuck Haddad Consulting Physician: Chuck Haddad Reason for Consult: Peritonsillar Abscess, Leukocytosis Hospital Course - Lab Results Lab Results: Micro Results 12/27/18 19:45 Blood Blood Culture - Preliminary NO GROWTH AFTER 4 DAYS 12/27/18 19:40 Blood Blood Culture - Preliminary NO GROWTH AFTER 4 DAYS 12/27/18 15:22 Throat Group A Strep Throat Culture - Final NO BETA STREP GROUP A ISOLATED. Most Recent Lab Values WBC 12.6 K/uL (4.8-10.8) H 12/29/18 05:15 RBC 3.70 Mil/uL (3.80-5.20) L 12/29/18 05:15 Hgb 11.3 g/dL (11.0-16.0) 12/29/18 05:15 Hct 35.4 % (34.0-47.0) 12/29/18 05:15 MCV 95.6 fL (81.0-99.0) 12/29/18 05:15 MCH 30.5 pg (27.0-31.0) 12/29/18 05:15 MCHC 31.9 g/dL (33.0-37.0) L 12/29/18 05:15 RDW 13.1 % (11.5-14.5) 12/29/18 05:15 Plt Count 275 K/uL (130-400) 12/29/18 05:15 MPV 8.3 fL (7.2-11.7) 12/29/18 05:15 Neut % (Auto) 61.7 % (50.0-75.0) 12/29/18 05:15 Lymph % (Auto) 31.0 % (20.0-40.0) 12/29/18 05:15 Amite % (Auto) 6.0 % (0.0-10.0) 12/29/18 05:15 Eos % (Auto) 0.7 % (0.0-4.0) 12/29/18 05:15 Baso % (Auto) 0.6 % (0.0-2.0) 12/29/18 05:15 Neut # (Auto) 7.8 K/uL (1.8-7.0) H 12/29/18 05:15 Lymph # (Auto) 3.9 K/uL (1.0-4.3) 12/29/18 05:15 Amite # (Auto) 0.8 K/uL (0.0-0.8) 12/29/18 05:15 Eos # (Auto) 0.1 K/uL (0.0-0.7) 12/29/18 05:15 Baso # (Auto) 0.1 K/uL (0.0-0.2) 12/29/18 05:15 Neutrophils % (Manual) 97 % (50-75) H 12/28/18 11:31 Lymphocytes % (Manual) 3 % (20-40) L 12/28/18 11:31 Monocytes % (Manual) TEST NOT PERFORMED 12/28/18 11:31 Platelet Estimate Normal (NORMAL) 12/28/18 11:31 RBC Morphology Normal 12/28/18 11:31 PT 10.8 SECONDS (9.7-12.2) 12/27/18 15:22 INR 1.0 12/27/18 15:22 APTT 31 SECONDS (21-34) 12/27/18 15:22 Sodium 138 mmol/L (132-148) 12/29/18 05:15 Potassium 5.0 mmol/L (3.6-5.2) 12/29/18 05:15 Chloride 107 mmol/L (98-107) 12/29/18 05:15 Carbon Dioxide 25 mmol/L (22-30) 12/29/18 05:15 Anion Gap 11 (10-20) 12/29/18 05:15 BUN 8 mg/dL (7-17) 12/29/18 05:15 Creatinine 0.7 mg/dL (0.7-1.2) 12/29/18 05:15 Est GFR ( Amer) > 60 12/29/18 05:15 Est GFR (Non-Af Amer) > 60 12/29/18 05:15 Random Glucose 119 mg/dL (65-105) H D 12/29/18 05:15 Calcium 8.6 mg/dl (8.6-10.4) 12/29/18 05:15 Total Bilirubin 0.3 mg/dL (0.2-1.3) 12/29/18 05:15 AST 15 U/L (14-36) 12/29/18 05:15 ALT 17 U/L (9-52) 12/29/18 05:15 Alkaline Phosphatase 40 U/L (38-126) 12/29/18 05:15 Total Protein 6.4 g/dL (6.3-8.3) 12/29/18 05:15 Albumin 3.5 g/dL (3.5-5.0) 12/29/18 05:15 Globulin 2.9 gm/dL (2.2-3.9) 12/29/18 05:15 Albumin/Globulin Ratio 1.2 (1.0-2.1) 12/29/18 05:15 Urine HCG, Qual Negative (NEGATIVE) 12/29/18 01:47 Influenza Typ A,B (EIA) Negative for flu a/b (NEGATIVE) 12/27/18 15:22 Grp A Beta Strep Ag Negative (NEGATIVE) 12/27/18 15:22 Attending/Attestation - Attestation I have personally seen and examined this patient.: Yes I have fully participated in the care of the patient.: Yes I have reviewed all pertinent clinical information, including history, physical exam and plan: Yes Notes (Text): This is late computer entry for 12/29/18. Patient seen, examined, and case discussed with day-time resident. Patient seen post OR s/p tonsillectomy. Patient is in no acute distress. Noted soft spoken and sore throat which is expected. patient accompanied by boyfriend at bedside. Per ENT patient is stable for discharge recommended to follow-up in the office as outpatient. Patient notes she is "allergic" to penicillin; she has not had adverse reaction while being hospitalized. We have updated in the EMR, and discharged her on Clindamycin. Patient's blood cultures are negative, strep is negative and white count is downtrending. Patient noted for vaginal itchiness likely secondary sensitivitiy from IV abx; will give dose of Diflucan prior to discharge and recommend Monistat 7 while she is at home. This is brief summary of patient's hospitalization. Please see EMR for full detail of record. Discharge Diagnoses: 1) Peritonsilar Abscess Tonsillitis Assessment/plan * s/p I and D and tonsillectomy by ENT * Per ENT stable for discharge * Patient received IV zoysn while hospitalized, no allergic reaction observed; updated allergy in emr; patient discharged on clindamycin PO and monistat 7 to cover for yeast infection * Blood cultures are negative * White count downtrending; noted paritally influenced by steroid she received on admission
--- NOTE | 2018-12-29 18:44 | OP ---
PROCEDURE DATE: 12/29/2018 PREOPERATIVE DIAGNOSIS: Peritonsillar abscess./tonsillitis. POSTOPERATIVE DIAGNOSIS: Peritonsillar abscess./tonsillitis. PROCEDURE: Tonsillectomy. FINDINGS: Infected tonsils bilaterally. DESCRIPTION OF PROCEDURE: The patient was brought into room, placed in supine position, anesthesia initiated through an ET tube. The patient was draped in usual manner. Mouth gag was placed in oral cavity, opened, suspended on [employer] recruiting coordinator the usual manner. Right tonsil was grabbed, pulled medially. Incision was made in the anterior tonsillar pillar using coblation. Dissection was done between tonsil and tonsillar fossa using coblation until the tonsil was removed. Bleeding was controlled using coblation. Next, the other tonsil was grabbed, pulled medially. Incision was made in the anterior tonsillar pillar using coblation. Dissection was done between tonsil and tonsillar fossa using coblation until the tonsil was removed. Bleeding was controlled using coblation. Both tonsillar beds were rubbed vigorously with coblation wand. No bleeding was noted. Mouth gag was let down for 30 seconds and put back up, no bleeding was noted. Mouth gag was taken down and removed. The patient was taken off anesthesia and taken to recovery room in stable manner. Chuck Haddad MD
--- NOTE | 2018-12-31 06:55 | CON ---
DATE: 12/29/2018 Possible peritonsillar abscess. HISTORY: This is a 33-year-old female with 2-week history of right throat pain, severe constant. The patient also has trismus and had incision and drainage of a possible peritonsillar abscess that , CAT scan was attempted yesterday. The patient since then did not improve. She continues to have trismus and throat pain and the risks and benefits of tonsillectomy were discussed with her. The patient would like to have a tonsillectomy done in order to try to alleviate her symptoms. Chuck Haddad MD
--- NOTE | 2019-01-02 12:15 | CARD ---
APPROVED REPORT Date of service: 12/28/2018 EKG Measurement Heart [id number] [id number] <Conclusion> Sinus rhythm with sinus arrhythmia with short UT Otherwise normal ECG
== END 2018-12-29 18:10 | disposition home or self-care (01) ==
LOC: C.ER 14:20 → C.9E 19:31 → C.3T 20:05
PROVIDERS: ADMIT Hospitalist; ATTEND Hospitalist
DX: J36 Peritonsillar abscess (principal); J03.91 Acute recurrent tonsillitis, unspecified
CPT/HCPCS: 36415; 42700; 42826; 70491; 71045; 80053; 81025; 84703; 85025; 85610; 85730; 87040; 87070; 87430; 87804; 88304; 90471; 90674; 90732; 96374; 96375; 96376; 99284; G0378; J1100; J1170; J2001; J2270; J2405; J2543; J2704; J3010; J7030; J7042; Q9967

== ENCOUNTER 2019-01-06 23:32 | Emergency (ER) | payer SELFPAY ==
[2019-01-06 23:43] VITALS: TEMP 97.8
[2019-01-06] MEDS ORDERED: Dexamethasone 4 mg/1 ml IM STA (23:51)
[2019-01-06] MEDS ORDERED: Acetaminophen-Codeine 300/30 mg Tab PO STA (23:51)
--- NOTE | 2019-01-06 23:53 | C.PDOC ---
History Of Present Illness 33 year old female presents to the ED c/o throat pain, difficulty swallowing and scant blood sputum. Patient is 8 days post operative for tonsillectomy done by Dr. Haddad. Patient had tonsillectomy due to chronic throat infections. Patient saw Dr. Haddad yesterday with a normal follow up. Patient denies fever, chills, headache, loose bloody stools, nausea, vomit, diarrhea. Time Seen by Provider: 01/06/19 23:39 Chief Complaint (Nursing): ENT Problem History Per: Patient History/Exam Limitations: None Onset/Duration Of Symptoms: Days Current Symptoms Are (Timing): Still Present Quality (Mouth/Throat): Redness Anticoagulant/Antiplatlet Use?: No Recent Aspirin Use: No Past Medical History Reviewed: Historical Data, Nursing Documentation, Vital Signs Vital Signs: Last Vital Signs Temp 97.8 F 01/06/19 23:40 Pulse 117 H 01/06/19 23:40 Resp 20 01/06/19 23:40 BP 131/88 01/06/19 23:40 Pulse Ox 100 01/06/19 23:40 - Medical History PMH: No Chronic Diseases Surgical History: Tonsillectomy Family History: States: Unknown Family Hx - Social History Hx Alcohol Use: No Hx Substance Use: No - Immunization History Hx Tetanus Toxoid Vaccination: No Hx Influenza Vaccination: No Hx Pneumococcal Vaccination: No Review Of Systems Constitutional: Negative for: Fever, Chills ENT: Positive for: Throat Pain, Throat Swelling Respiratory: Negative for: Cough, Shortness of Breath Gastrointestinal: Negative for: Nausea, Vomiting, Abdominal Pain Skin: Negative for: Rash Neurological: Negative for: Weakness, Numbness Physical Exam - Physical Exam Appears: Non-toxic, No Acute Distress, Other (intermittently calms and cooperative then tearfull and anxious) Skin: Normal Color, Warm, Dry Head: Atraumatic, Normacephalic Eye(s): bilateral: Normal Inspection Oral Mucosa: Moist Throat: No Exudate, No Drooling (typical post op tonsillectomy cauterized edges, scant blood right upper tonsil), Other Neck: Normal ROM, Supple Chest: Symmetrical Cardiovascular: Rhythm Regular Respiratory: Normal Breath Sounds, No Rales, No Rhonchi, No Wheezing Gastrointestinal/Abdominal: Soft, No Tenderness, No Guarding, No Rebound Extremity: Normal ROM, No Tenderness, No Swelling Neurological/Psych: Oriented x3, Normal Speech, Normal Cognition Gait: Steady ED Course And Treatment O2 Sat by Pulse Oximetry: 100 (ON RA) Pulse Ox Interpretation: Normal Medical Decision Making Medical Decision Making: post op Tonsillectomy POD #8 healing nicely seen by Dr. Haddad yesterday w good checkup occ scant blood tinged not clinically dehydrated speaking fluidly without pain Disposition Doctor Will See Patient In The: Office Counseled Patient/Family Regarding: Studies Performed, Diagnosis - Disposition Referrals: [facility] [Outside] [facility] [Outside] [facility] [Outside] Chuck Haddad MD [Staff Provider] - Disposition: HOME/ ROUTINE Disposition Time: 23:53 Condition: GOOD Additional Instructions: 12.5 ml of tylenol/codeine elixer liquid every 6 hours as needed for throat pain. continue to sip cold/ice liquids Decadron 4 mg IM given in ED (powerful long-acting steroid) Tylenol w Codeine elixer given in ED follow-up w Dr. Haddad as needed. Prescriptions: Acetaminophen/Codeine [Tylenol/Codeine elixir] 12.5 ml PO Q6H #6 udc Instructions: Postoperative Pain (DC), Managing Pain After Surgery Forms: Settle (French) - Clinical Impression Clinical Impression: Post-tonsillectomy pain - Scribe Statement The provider has reviewed the documentation as recorded by the Scribe Brandon Avila All medical record entries made by the Scribe were at my direction and personally dictated by me. I have reviewed the chart and agree that the record accurately reflects my personal performance of the history, physical exam, medical decision making, and the department course for this patient. I have also personally directed, reviewed, and agree with the discharge instructions and disposition.
[2019-01-06] MEDS ORDERED: Dexamethasone 4 mg/1 ml ONE (23:57)
[2019-01-06] MEDS ORDERED: Acetaminophen-Codeine 300/30 mg Tab PO ONE (23:58)
[2019-01-07] MEDS ORDERED: Acetaminophen/Codeine elixir 120-12mg/5ml PO STA (00:05)
[2019-01-07] MEDS ORDERED: Acetaminophen/Codeine elixir 120-12mg/5ml ONE (00:13)
[2019-01-07 01:01] VITALS: BP 122/76; PULSE 75; RESP 18; O2SAT 99
== END 2019-01-07 01:01 | disposition home or self-care (01) ==
LOC: C.ER 23:32
DX: G89.18 Other acute postprocedural pain (principal)
CPT/HCPCS: 96372; 99283; J1100

== ENCOUNTER 2019-01-07 07:18 | Observation (INO) | payer SELFPAY ==
--- NOTE | 2019-01-07 07:27 | C.PDOC ---
History Of Present Illness 33 year old female presents to ED with bleeding and clots coming from the mouth. Patient is 9 days post-op from a tonsillectomy. Patient states that she experienced pain and bleeding this morning. Dr. Haddad told her to come to [facility] ED. Dr. Eusebio Jhaveri at bedside requesting to take patient to the OR. Patient denies fever,chills, and diaphoresis. Time Seen by Provider: 01/07/19 07:24 Chief Complaint (Nursing): Medical Clearance History Per: Patient History/Exam Limitations: no limitations Onset/Duration Of Symptoms: Days (1) Current Symptoms Are (Timing): Still Present Past Medical History Reviewed: Historical Data, Nursing Documentation, Vital Signs Vital Signs: Last Vital Signs Temp 97.4 F L 01/07/19 07:22 Pulse 139 H 01/07/19 07:22 Resp 17 01/07/19 07:22 BP 114/81 01/07/19 07:22 Pulse Ox 95 01/07/19 07:22 - Medical History PMH: No Chronic Diseases Surgical History: Tonsillectomy Family History: States: Unknown Family Hx - Social History Hx Alcohol Use: No Hx Substance Use: No - Immunization History Hx Tetanus Toxoid Vaccination: No Hx Influenza Vaccination: No Hx Pneumococcal Vaccination: No Review Of Systems Constitutional: Negative for: Fever, Chills, Sweats ENT: Positive for: Mouth Pain, Other (bleeding and clots coming from the mouth) Respiratory: Negative for: Cough Skin: Negative for: Rash Neurological: Negative for: Weakness, Numbness, Dizziness Physical Exam - Physical Exam Appears: Well, Non-toxic, No Acute Distress Skin: Normal Color, No Rash Head: Atraumatic, Normacephalic Eye(s): bilateral: Normal Inspection Throat: Other (post op granulations, no signs of infection, blood clots, no active bleeding) Chest: Symmetrical Cardiovascular: Rhythm Regular Respiratory: Normal Breath Sounds Neurological/Psych: Oriented x3, Normal Speech, Normal Cognition ED Course And Treatment - Laboratory Results Result Diagrams: 01/07/19 10:45 01/07/19 10:45 O2 Sat by Pulse Oximetry: 95 (in RA) Progress Note: Patient admitted to Dr. Haddad's service. Patient sent to the OR. Disposition - Disposition Disposition: Still A Patient Disposition Time: 07:28 Condition: STABLE - Clinical Impression Clinical Impression: Post-tonsillectomy hemorrhage - PA / INTEGRATION SOFTWARE DEVELOPER / Resident Statement MD/DO has reviewed & agrees with the documentation as recorded. (Sofy Boogie) - Scribe Statement The provider has reviewed the documentation as recorded by the Scribe (Sofy Boogie) All medical record entries made by the Scribe were at my direction and person ally dictated by me. I have reviewed the chart and agree that the record accurately reflects my personal performance of the history, physical exam, medical decision making, and the department course for this patient. I have also personally directed, reviewed, and agree with the discharge instructions and disposition. Decision To Admit - Pt Status Changed To: Hospital Disposition Of: SDS- Endo,OR,Cath,IR - . Bed Request Type: Same Day Surgery Admitting Physician: Chuck Haddad Patient Diagnosis: Post-tonsillectomy hemorrhage
[2019-01-07] MEDS ORDERED: Succinylcholine Chloride 20 mg/ml Syr (5 ml) IV ONE (07:56)
[2019-01-07] MEDS ORDERED: Propofol 10 mg/ml Inj (20 ML) ONE (07:56)
[2019-01-07] MEDS ORDERED: Phenylephrine 10 mg/ml Inj ONE (08:05)
[2019-01-07] MEDS ORDERED: Morphine 10 mg/5 ml Oral Soln PO PRN (08:24)
[2019-01-07] MEDS ORDERED: Dextrose 5%/0.45% NS 1,000 ML IV SCH (08:30)
[2019-01-07] MEDS ORDERED: Lactated Ringer's 1,000 ML IV ONE ×2 (08:47→13:10)
[2019-01-07] MEDS ORDERED: Lactated Ringer's 1,000 ML IV PRN (08:50)
[2019-01-07] MEDS ORDERED: HYDROmorphone 0.5 mg/0.5 ml ISec IVP PRN ×2 (08:50→13:29)
[2019-01-07] MEDS ORDERED: HYDROmorphone 0.5 mg/0.5 ml ISec ONE (08:59)
--- NOTE | 2019-01-07 10:37 | CP.PCM.HP ---
<VandanaAddy nuñez - Last Filed: 01/07/19 16:18> History of Present Illness - History of Present Illness History of Present Illness: PGY1 Medicine History and physical for Dr. Doyel This is a 33 year old female s/p cautery with tonsillectomy (ENT Dr. Haddad) who complains of near syncopal episode earlier this morning. Pt underwent tonsillectomy 12/29/18, with significant post-op bleeding from the site as per pt. Pt was taking Motrin 600 mg PO q4 hours for 5 days due to tonsillar pain; she wa s not eating with the medication and only drinking a small amount of liquids secondary to the pain/bleeding. She proceeded to come to the ER 01/06/19 night, to which she was given Decadron 4 mg IM, along with codeine/elixir q6h for pain. After being discharged, around 1-2:30 AM this morning, pt continued to bleed, and at approximately 5:30am she found her mouth having significant blood. Presyncope is described as feeling very lightheaded and needing to lay down to prevent herself from falling. She describes seeing "stars" throughout her vision during this ordeal. She states that she may have been "out of it" for 1-2 minutes at most, but denies hitting her head. She noted having a soft, dark, black, tarry bowel movement prior to calling the ambulance earlier this morning. On her way to the OR, she had another similar bowel movement. Pt has not had many bowel movements since the surgery due to the decreased oral intake, but states her BM prior to today was nonbloody, nonbilious. With regards to prior near syncopal episode pt endorses: Dizziness, generalized weakness, dehydrated, fatigue, weight loss due to pain on swallowing. Currently in the PACU, she is asymptomatic and has no complaints except anxiety about her current situation. She is happy that the bleeding is controlled. She denies the following: Fever, chills, vertigo, blurry vision, hearing loss, headache, dizziness, chest pain, sob, abdominal pain during defecation, easy bruising, prior history of GI bleed/hematochezia/melena. or any other symptoms at this time. PMHx: multiple tonsillar infections PSHx: Peritonsillar abscess with I and D 12/2018, Tonsillectomy 12/29/18 with subsequent bleeding requiring cautery 01/07/19. Meds: Motrin as above, Tylenol prn pain. Completed a ten day course of Clindamycin Allergies: Amoxicillin FHx: Pt denies history of cancer or GI bleeding. Social Hx: Occasional EtOH use. Denies tobacco usage, or illicit drug use. Present on Admission - Present on Admission Any Indicators Present on Admission: No Review of Systems - Review of Systems All systems: reviewed and no additional remarkable complaints except (as per HPI) Past Patient History - Infectious Disease Hx of Infectious Diseases: None - Past Social History Smoking Status: Never Smoked - PSYCHIATRIC Hx Substance Use: No - SURGICAL HISTORY Hx Tonsillectomy: Yes - ANESTHESIA Hx Anesthesia: Yes Hx Anesthesia Reactions: No Meds Allergies/Adverse Reactions: Allergies Allergy/AdvReac Type Severity Reaction Status Date / Time amoxicillin Allergy RASH Verified 01/07/19 07:21 Physical Exam - Constitutional Appears: Non-toxic, No Acute Distress - Head Exam Head Exam: ATRAUMATIC, NORMAL INSPECTION - Eye Exam Eye Exam: EOMI, Normal appearance Additional comments: conjunctival pallor - ENT Exam ENT Exam: Mucous Membranes Dry - Respiratory Exam Respiratory Exam: Clear to Auscultation Bilateral. absent: Decreased Breath Sounds, Rales, Rhonchi, Wheezes, Respiratory Distress, Stridor - Cardiovascular Exam Cardiovascular Exam: Tachycardia, REGULAR RHYTHM, +S1, +S2. absent: Diastolic murmur, Irregular Rhythm - GI/Abdominal Exam GI & Abdominal Exam: Normal Bowel Sounds, Soft. absent: Diminished Bowel Sounds, Distended, Firm, Guarding, Rebound, Rigid, Tenderness Additional comments: (+) suprapubic tenderness - Rectal Exam Rectal Exam: Hemorrhoids (nonthrobosed hermorhoid, no fissures). absent: Black Stool, Bloody Stool, Fecal Impaction Additional comments: brown mucus on glove; FOBT sent - Extremities Exam Extremities exam: Positive for: normal capillary refill, normal inspection, pedal pulses present (2+ pulss in distal upper and lower extremities). Negative for: calf tenderness, joint swelling, pedal edema, tenderness - Back Exam Back exam: NORMAL INSPECTION. absent: CVA tenderness (L), CVA tenderness (R) - Neurological Exam Neurological exam: Alert, Oriented x3 - Psychiatric Exam Psychiatric exam: Anxious, Normal Affect, Normal Mood - Skin Skin Exam: Dry, Normal Color Additional comments: no ecchyomsis, no petichiae, no rash Results - Vital Signs Recent Vital Signs: Last Vital Signs Temp 98 F 01/07/19 08:47 Pulse 99 H 01/07/19 09:30 Resp 12 01/07/19 09:30 BP 137/82 01/07/19 09:30 Pulse Ox 100 01/07/19 09:30 - Labs Result Diagrams: 01/07/19 15:37 01/07/19 10:45 Labs: Laboratory Results - last 24 hr 01/07/19 07:23 POC Glucose (mg/dL) 218 H Assessment & Plan - Assessment and Plan (Free Text) Assessment: 33 year old female s/p cautery with PSHx of peritonsillar abscess I and D and tonsillectomy presented this AM for blood pooling in the mouth and associated throat pain. Plan: Anemia, normocytic Possible Upper GI bleed Hgb 9.7 Hct 29.7; MCV is 92.7 Pt's baseline is 11-12 Repeat Hgb is 8.9 Gastroenterology, Dr. Solo, consulted. Recs appreciated. Case d/w GI on the phone, requests Protonix gtt, CBC q4h x24 hours Type and cross for 2 units INR is 1.2 Ferritin is normal at 76.5, transferrin is low at 159.73 F/u Iron, TIBC, %sat, reticulocyte count F/u CBC q4h FOBT is positive Protonix gtt started Fall precautions Tele monitor Near syncope Likely due to combination of anemia, dehydration, poor oral intake secondary to tonsillectomy Pt on telemonitor CXR shows no active pulmonary disease F/u SHRUTHI panel EKG shows QTc prolongation at 515, short KS interval (106) Magnesium was repleted as below. Pt with short KS interval in the past. Tonsillar bleeding secondary to tonsillectomy (12/29/18) S/p cautery w/Dr. Haddad. ENT, Dr. Haddad, consulted. Recs appreciated No antibiotics at this time NPO NS IVF at 100 mL/hr Morphine 1 mg IVP q4h prn pain Aspiration precautions FSBS was 137 on admission Accucheck q6 while NPO Hypoglycemia protocol Leukocytosis 13.2 on admission; likely reactive and secondary to decadron in the ED yesterday Pt afebrile, tachycardia secondary to dehydration/anemia/pain F/u blood culture x2 Hypomagnesemia Mg is 1.5 on admission MgSulfate 1g IVP x2 bags PPx GI PPx: PTX gtt SCDs Chemical VTE ppx contraindicated in suspected GI bleed with anemia NPO <Carmen Doyle V - Last Filed: 01/08/19 00:07> Results - Vital Signs Recent Vital Signs: Last Vital Signs Temp 98.8 F 01/07/19 16:00 Pulse 105 H 01/07/19 16:00 Resp 15 01/07/19 16:00 BP 119/75 01/07/19 16:00 Pulse Ox 99 01/07/19 16:00 - Labs Result Diagrams: 01/07/19 19:13 01/07/19 10:45 Labs: Laboratory Results - last 24 hr 01/07/19 01/07/19 01/07/19 07:23 10:45 10:45 WBC 13.2 H RBC 3.20 L Hgb 9.7 L Hct 29.7 L MCV 92.7 D MCH 30.4 MCHC 32.8 L RDW 12.7 Plt Count 276 MPV 8.6 Neut % (Auto) Lymph % (Auto) [place] % (Auto) Eos % (Auto) Baso % (Auto) Neut # (Auto) Lymph # (Auto) [place] # (Auto) Eos # (Auto) Baso # (Auto) Retic Count PT INR Sodium Potassium Chloride Carbon Dioxide Anion Gap BUN Creatinine Est GFR ( Amer) Est GFR (Non-Af Amer) POC Glucose (mg/dL) 218 H Random Glucose Calcium Phosphorus Magnesium Iron TIBC % Saturation Transferrin Ferritin Total Bilirubin AST ALT Alkaline Phosphatase Total Creatine Kinase CK-MB (Mass) Troponin I Total Protein Albumin Globulin Albumin/Globulin Ratio Procalcitonin Beta HCG, Quant Urine Color Urine Clarity Urine pH Ur Specific [place] Urine Protein Urine Glucose (UA) Urine Ketones Urine Blood Urine Nitrate Urine Bilirubin Urine Urobilinogen Ur Leukocyte Esterase Urine WBC (Auto) Urine RBC (Auto) Ur Squamous Epith Cells Urine Bacteria Hyaline Casts WBC Casts Stool Occult Blood Blood Type O NEGATIVE Antibody Screen Negative 01/07/19 01/07/19 01/07/19 10:45 10:45 10:45 WBC RBC Hgb Hct MCV MCH MCHC RDW Plt Count MPV Neut % (Auto) Lymph % (Auto) [place] % (Auto) Eos % (Auto) Baso % (Auto) Neut # (Auto) Lymph # (Auto) [place] # (Auto) Eos # (Auto) Baso # (Auto) Retic Count PT 13.6 H INR 1.2 Sodium 134 Potassium 4.9 Chloride 107 Carbon Dioxide 23 Anion Gap 9 L BUN 41 H Creatinine 1.0 Est GFR ( Amer) > 60 Est GFR (Non-Af Amer) > 60 POC Glucose (mg/dL) Random Glucose 137 H Calcium 8.3 L Phosphorus 4.0 Magnesium 1.5 L Iron TIBC % Saturation Transferrin Ferritin 76.5 Total Bilirubin 0.4 AST 13 L ALT 18 Alkaline Phosphatase 41 Total Creatine Kinase CK-MB (Mass) Troponin I Total Protein 6.0 L Albumin 3.4 L Globulin 2.6 Albumin/Globulin Ratio 1.3 Procalcitonin Beta HCG, Quant < 2.39 Urine Color Urine Clarity Urine pH Ur Specific [place] Urine Protein Urine Glucose (UA) Urine Ketones Urine Blood Urine Nitrate Urine Bilirubin Urine Urobilinogen Ur Leukocyte Esterase Urine WBC (Auto) Urine RBC (Auto) Ur Squamous Epith Cells Urine Bacteria Hyaline Casts WBC Casts Stool Occult Blood Blood Type Antibody Screen 01/07/19 01/07/19 01/07/19 11:52 11:52 12:12 WBC RBC Hgb Hct MCV MCH MCHC RDW Plt Count MPV Neut % (Auto) Lymph % (Auto) [place] % (Auto) Eos % (Auto) Baso % (Auto) Neut # (Auto) Lymph # (Auto) [place] # (Auto) Eos # (Auto) Baso # (Auto) Retic Count PT INR Sodium Potassium Chloride Carbon Dioxide Anion Gap BUN Creatinine Est GFR ( Amer) Est GFR (Non-Af Amer) POC Glucose (mg/dL) Random Glucose Calcium Phosphorus Magnesium Iron TIBC % Saturation Transferrin 159.73 L Ferritin Total Bilirubin AST ALT Alkaline Phosphatase Total Creatine Kinase CK-MB (Mass) Troponin I Total Protein Albumin Globulin Albumin/Globulin Ratio Procalcitonin Beta HCG, Quant Urine Color Yellow Urine Clarity Hazy Urine pH 5.0 Ur Specific [place] 1.017 Urine Protein Negative Urine Glucose (UA) Normal Urine Ketones Trace Urine Blood Negative Urine Nitrate Negative Urine Bilirubin Negative Urine Urobilinogen Normal Ur Leukocyte Esterase Neg Urine WBC (Auto) 5 Urine RBC (Auto) 1 Ur Squamous Epith Cells 1 Urine Bacteria Rare Hyaline Casts 0-2 WBC Casts 3 Stool Occult Blood Positive H Blood Type Antibody Screen 01/07/19 01/07/19 01/07/19 15:37 15:37 15:37 WBC 8.2 RBC 2.98 L Hgb 8.9 L Hct 27.6 L MCV 92.5 MCH 30.0 MCHC 32.4 L RDW 12.9 Plt Count 259 MPV 7.7 Neut % (Auto) 79.9 H Lymph % (Auto) 16.8 L [place] % (Auto) 3.0 Eos % (Auto) 0.1 Baso % (Auto) 0.2 Neut # (Auto) 6.6 Lymph # (Auto) 1.4 [place] # (Auto) 0.2 Eos # (Auto) 0.0 Baso # (Auto) 0.0 Retic Count 0.3 L PT INR Sodium Potassium Chloride Carbon Dioxide Anion Gap BUN Creatinine Est GFR ( Amer) Est GFR (Non-Af Amer) POC Glucose (mg/dL) Random Glucose Calcium Phosphorus Magnesium Iron 109 TIBC 223 L % Saturation 49 Transferrin Ferritin Total Bilirubin AST ALT Alkaline Phosphatase Total Creatine Kinase CK-MB (Mass) Troponin I Total Protein Albumin Globulin Albumin/Globulin Ratio Procalcitonin Beta HCG, Quant Urine Color Urine Clarity Urine pH Ur Specific [place] Urine Protein Urine Glucose (UA) Urine Ketones Urine Blood Urine Nitrate Urine Bilirubin Urine Urobilinogen Ur Leukocyte Esterase Urine WBC (Auto) Urine RBC (Auto) Ur Squamous Epith Cells Urine Bacteria Hyaline Casts WBC Casts Stool Occult Blood Blood Type Antibody Screen 01/07/19 01/07/19 01/07/19 16:31 16:35 19:13 WBC 8.6 RBC 2.82 L Hgb 8.4 L Hct 26.3 L MCV 93.3 MCH 29.8 MCHC 32.0 L RDW 12.9 Plt Count 253 MPV 8.6 Neut % (Auto) 60.0 Lymph % (Auto) 29.8 [place] % (Auto) 9.5 Eos % (Auto) 0.2 Baso % (Auto) 0.5 Neut # (Auto) 5.2 Lymph # (Auto) 2.6 [place] # (Auto) 0.8 Eos # (Auto) 0.0 Baso # (Auto) 0.0 Retic Count PT INR Sodium Potassium Chloride Carbon Dioxide Anion Gap BUN Creatinine Est GFR ( Amer) Est GFR (Non-Af Amer) POC Glucose (mg/dL) Random Glucose Calcium Phosphorus Magnesium Iron TIBC % Saturation Transferrin Ferritin Total Bilirubin AST ALT Alkaline Phosphatase Total Creatine Kinase 39 CK-MB (Mass) 0.67 Troponin I 0.0480 Total Protein Albumin Globulin Albumin/Globulin Ratio Procalcitonin < 0.05 L Beta HCG, Quant Urine Color Urine Clarity Urine pH Ur Specific [place] Urine Protein Urine Glucose (UA) Urine Ketones Urine Blood Urine Nitrate Urine Bilirubin Urine Urobilinogen Ur Leukocyte Esterase Urine WBC (Auto) Urine RBC (Auto) Ur Squamous Epith Cells Urine Bacteria Hyaline Casts WBC Casts Stool Occult Blood Blood Type Antibody Screen Attending/Attestation - Attestation I have personally seen and examined this patient.: Yes I have fully participated in the care of the patient.: Yes I have reviewed all pertinent clinical information: Yes Notes (Text): This is a 33-year-old female with recent hospitalization for peritonsillar abscess underwent both an I&D as well as a tonsillectomy was recently discharged who comes back following syncopal episode noted recent bleeding requiring further ENT intervention. Patient underwent cautery with ENT this morning case discussed with the ENT. Prior to procedure today patient had completed about 10 days worth of clindamycin. Per ENT no longer needed antibiotic. ENT consulted hospitalist service given that patient has had a syncopal episode and noted melena. Patient during her recent discharge noted to taking Motrin 600 mg for the past 5 days on empty stomach. Patient seen in the morning and the packing as well as on reevaluation patient is belly is soft nontender nondistended no guarding no rigidity. Patient is n.p.o. she is concerned rather afraid to eat anything by mouth. Resident has spoken with GI recommended for Protonix drip and will evaluate the patient will suspicion for GI bleed. Rectal was performed by resident noted for small hemorrhoid. 1. Status post tonsillectomy with bleeding ENT on board Underwent cauterization postoperative day 0 Postoperative management per ENT Patient is recently completed clindamycin as outpatient 2. Melena Patient is on Protonix drip she is n.p.o. recommended for serial CBC per GI Patient noted to have hemorrhoid on exam Occult blood positive Strongly advised not to take NSAIDs GI on board help appreciated 3. Anemia patient does report a prior history of anemia Suspected secondary to recent surgical procedure Blood work collected post OR noted hemoglobin 9.7 Discussed risks and benefits of blood transfusion with patient will transfuse 1 unit of PRBC overnight Follow-up with GI Noted abdomen is benign was evaluated while in the morning as well as in the 4. Low magnesium Repleted 5. Prophylactic measure IV fluids N.p.o. Protonix drip Clinical contraindication secondary to noted bleeding Monitor on telemetry Disposition: Follow-up with GI and ENT, transfuse 1 unit of PRBC and monitor H&H
[2019-01-07 10:56] LABS: HEMOGLOBIN 9.7 g/dL (11.0-16.0); MEAN CORPUSCULAR HEMOGLOBIN 30.4 pg (27.0-31.0); MEAN CORPUSCULAR HGB CONC 32.8 g/dL (33.0-37.0); MEAN PLATELET VOLUME 8.6 fL (7.2-11.7); RBC 3.2 Mil/uL (3.80-5.20); RED CELL DISTRIBUTION WIDTH 12.7 % (11.5-14.5); WHITE BLOOD COUNT 13.2 K/uL (4.8-10.8)
[2019-01-07 10:58] LABS: MEAN CELL VOLUME 92.7 fL (81.0-99.0)
[2019-01-07 11:02] LABS: INR 1.2; PROTHROMBIN TIME 13.6 SECONDS (9.7-12.2)
[2019-01-07 11:16] LABS: ALB/GLOB RATIO 1.3 (1.0-2.1); ALBUMIN 3.4 g/dL (3.5-5.0); ALT/SGPT 18 U/L (9-52); AST/SGOT 13 U/L (14-36); BLOOD UREA NITROGEN 41 mg/dL (7-17); CALCIUM 8.3 mg/dl (8.6-10.4); GFR NON-AFRICAN AMERICAN > 60
[2019-01-07] MEDS: Magnesium Sulfate 1 gm in D5W 1 GM/100 ML BAG IVPB SCH ×2 (12:25→12:50)
[2019-01-07 12:26] LABS: FERRITIN 76.5 ng/mL
[2019-01-07] MEDS ORDERED: Pantoprazole 80 MG in Sodium Chloride 0.9% 100 ML IVP SCH (12:30)
[2019-01-07 12:42] LABS: SQUAMOUS EPITHIAL 1 /hpf (0-5); URINE BACTERIA RARE (<OCC); URINE BILIRUBIN NEGATIVE (NEGATIVE); URINE BLOOD NEGATIVE (NEGATIVE); URINE CLARITY Hazy (Clear); URINE COLOR Yellow (YELLOW); URINE GLUCOSE (UA) NORMAL (Normal); URINE HYALINE CAST 0-2 /lpf (0-2); URINE LEUKOCYTE ESTERASE NEG Leu/uL (Negative); URINE PROTEIN NEGATIVE (NEGATIVE); URINE UROBILINOGEN NORMAL mg/dL (0.2-1.0)
[2019-01-07 12:51] LABS: URINE WHITE BLOOD CELL CAST 3 /lpf (0-1)
[2019-01-07] MEDS: Pantoprazole 80 MG in Sodium Chloride 0.9% 100 ML IVPB SCH (13:10)
[2019-01-07] MEDS ORDERED: Dextrose 50% SYRINGE Inj (50 ml) IV PRN (15:38)
[2019-01-07] MEDS ORDERED: Glucagon Recombinant 1 mg Inj IM PRN (15:38)
[2019-01-07 15:40] LABS: BASO % 0.2 % (0.0-2.0); EOS % 0.1 % (0.0-4.0); HEMOGLOBIN 8.9 g/dL (11.0-16.0); LYMPH # 1.4 K/uL (1.0-4.3); LYMPH % 16.8 % (20.0-40.0); MEAN CELL VOLUME 92.5 fL (81.0-99.0); MEAN CORPUSCULAR HGB CONC 32.4 g/dL (33.0-37.0); MEAN PLATELET VOLUME 7.7 fL (7.2-11.7); MONO # 0.2 K/uL (0.0-0.8); NEUT # 6.6 K/uL (1.8-7.0); NEUT % 79.9 % (50.0-75.0); RBC 2.98 Mil/uL (3.80-5.20); RED CELL DISTRIBUTION WIDTH 12.9 % (11.5-14.5); WHITE BLOOD COUNT 8.2 K/uL (4.8-10.8)
--- NOTE | 2019-01-07 15:48 | RAD ---
Date of service: 01/07/2019 HISTORY: near syncope COMPARISON: 12/28/2018. FINDINGS: LUNGS: The lungs are well inflated and clear. PLEURA: No pleural effusions or pneumothorax. CARDIOVASCULAR: The heart is normal in size. No aortic atherosclerotic calcifications present. OSSEOUS STRUCTURES: Within normal limits for the patient's age. VISUALIZED UPPER ABDOMEN: Normal. OTHER FINDINGS: None. IMPRESSION: No active pulmonary disease.
[2019-01-07 15:58] LABS: IRON 109 ug/dL (37-170)
[2019-01-07 16:07] LABS: % IRON SATURATION 49 (20-55); TOTAL IRON BINDING CAPACITY 223 ug/dL (250-450)
[2019-01-07 16:56] LABS: CK-MB 0.67 ng/mL (0.0-3.38); TROPONIN I 0.048 ng/mL (0.00-0.120)
[2019-01-07] MEDS ORDERED: Sodium Chloride 0.9% 1,000 ML IV ONE (17:00)
[2019-01-07] MEDS ORDERED: (Novolin R) Insulin Human Regular 100 units/ml vial SC SCH (18:00)
[2019-01-07 19:27] LABS: BASO % 0.5 % (0.0-2.0); EOS % 0.2 % (0.0-4.0); HEMOGLOBIN 8.4 g/dL (11.0-16.0); LYMPH # 2.6 K/uL (1.0-4.3); LYMPH % 29.8 % (20.0-40.0); MEAN CELL VOLUME 93.3 fL (81.0-99.0); MEAN CORPUSCULAR HEMOGLOBIN 29.8 pg (27.0-31.0); MEAN PLATELET VOLUME 8.6 fL (7.2-11.7); MONO # 0.8 K/uL (0.0-0.8); MONO % 9.5 % (0.0-10.0); NEUT # 5.2 K/uL (1.8-7.0); RBC 2.82 Mil/uL (3.80-5.20); RED CELL DISTRIBUTION WIDTH 12.9 % (11.5-14.5); WHITE BLOOD COUNT 8.6 K/uL (4.8-10.8)
--- NOTE | 2019-01-07 19:38 | OP ---
PROCEDURE DATE: 01/07/2019 PREOPERATIVE DIAGNOSIS: Post-tonsillectomy bleeding. POSTOPERATIVE DIAGNOSIS: Post-tonsillectomy bleeding. SURGEON: Chuck Haddad MD FINDINGS: Bleeding area on the left tonsillar fossa. DESCRIPTION OF PROCEDURE: The patient was brought into the operating room, placed in supine position, anesthesia initiated through an ET tube. The patient was draped in usual manner. A mouth gag was placed in the oral cavity, opened and suspended on the [facility] usual manner. The blood clot was on the left tonsillar fossa. Suction was used to remove the clot. Bleeding area was noted. Suction cautery was used to control the bleeding. At that point, the area was irrigated with saline. No bleeding was noted. Mouth gag was let down for 30 seconds, put back up, no bleeding was noted. The area was rubbed vigorously with suction cautery wand. No bleeding was noted. The mouth gag was taken out and removed. The patient was taken to the recovery room in stable manner. Chuck Haddad MD
[2019-01-08] MEDS ORDERED: HYDROmorphone 0.5 mg/0.5 ml ISec IVP ONE (01:09)
[2019-01-08] MEDS: Sodium Chloride 0.9% 1,000 ML IV SCH ×2 (01:55→13:43)
--- NOTE | 2019-01-08 07:35 | CP.PCM.PN ---
<Addy Burgos - Last Filed: 01/08/19 17:23> Subjective - Date & Time of Evaluation Date of Evaluation: 01/08/19 Time of Evaluation: 09:00 - Subjective Subjective: Medicine Progress note for Dr. Gastelum Pt seen and examined at bedside. Pt reports some throat pain, but overall improving. Denies fever, chills, chest pain, sob, palpitations, drooling, hemoptysis, bleeding from the throat, lightheadedness, dizziness, headache. Pt has not had any bowel movements since being admitted, as she hasn't eaten much lately. Objective - Vital Signs/Intake and Output Vital Signs (last 24 hours): Temp Pulse Resp BP Pulse Ox 97.8 F 80 20 126/76 98 01/08/19 06:27 01/08/19 06:27 01/08/19 06:27 01/08/19 06:27 01/08/19 06:27 Intake and Output: 01/08/19 01/08/19 06:59 18:59 Intake Total 375 Balance 375 - Medications Medications: Current Medications Dextrose (Glutose 15) 0 gm PO ONCE PRN; Protocol PRN Reason: Hypoglycemia Protocol Dextrose (Dextrose 50% Inj) 0 ml IV STAT PRN; Protocol PRN Reason: Hypoglycemia Protocol Glucagon (Glucagen Diagnostic Kit) 0 mg IM STAT PRN; Protocol PRN Reason: Hypoglycemia Protocol Lactated Ringer's (Lactated Ringer's) 1,000 mls @ 1,000 mls/hr IV .Q1H PRN PRN Reason: Hypotension Pantoprazole Sodium 80 mg/ (Sodium Chloride) 100 mls @ 10 mls/hr IVPB .Q10H FRACISCO Last Admin: 01/07/19 13:10 Dose: 70 mls Dextrose (Dextrose 5% In Water 1000 Ml) 1,000 mls @ 0 mls/hr IV .Q0M PRN; Protocol PRN Reason: Hypoglycemia Protocol Sodium Chloride (Sodium Chloride 0.9%) 1,000 mls @ 100 mls/hr IV .Q10H FRACISCO Last Admin: 01/08/19 01:55 Dose: 100 mls/hr Morphine Sulfate (Morphine) 1 mg IVP Q4 PRN PRN Reason: Pain, severe (8-10) Last Admin: 01/08/19 06:31 Dose: 1 mg - Labs Labs: 01/07/19 19:13 01/07/19 10:45 PT 13.6 SECONDS (9.7-12.2) H 01/07/19 10:45 INR 1.2 01/07/19 10:45 - Constitutional Appears: Non-toxic, No Acute Distress - Head Exam Head Exam: ATRAUMATIC, NORMAL INSPECTION - Eye Exam Eye Exam: EOMI, Normal appearance - ENT Exam ENT Exam: Mucous Membranes Moist Additional comments: no bleeding noted, dried or fresh mild pharyngeal erythema questionable exudate right pharynx - Neck Exam Neck Exam: Normal Inspection - Respiratory Exam Respiratory Exam: absent: Rales, Rhonchi, Wheezes, Stridor - Cardiovascular Exam Cardiovascular Exam: REGULAR RHYTHM, +S1, +S2. absent: Tachycardia - GI/Abdominal Exam GI & Abdominal Exam: Soft, Normal Bowel Sounds. absent: Firm, Guarding, Rigid, Tenderness - Extremities Exam Extremities Exam: Normal Inspection. absent: Calf Tenderness, Pedal Edema - Back Exam Back Exam: NORMAL INSPECTION. absent: CVA tenderness (L), CVA tenderness (R) - Neurological Exam Neurological Exam: Alert, Awake - Psychiatric Exam Psychiatric exam: Normal Affect, Normal Mood - Skin Skin Exam: Dry, Intact, Normal Color, Warm Assessment and Plan - Assessment and Plan (Free Text) Assessment: 33 year old female s/p cautery with PSHx of peritonsillar abscess I and D and tonsillectomy presented this AM for blood pooling in the mouth and associated throat pain. Plan: Anemia, normocytic FOBT positive likely secondary to bleeding from tonsillectomy traveling through GI tract Hgb 9.7 on admission Pt's baseline is 11-12 Hgb today is 8.0 (down from 8.4 s/p transfusion, likely secondary to hemodilution) Gastroenterology, Dr. Solo, consulted. Recs appreciated. The melena is most likely due to swallowed blood. Although she has been taking ibuprofen for several days, peptic ulcer disease is less likely. Type and cross for 2 units s/p 1 unit pRBC 01/07/19 Will receive 1 more unit pRBC today INR is 1.2 Ferritin is normal at 76.5, transferrin is low at 159.73 Iron normal at 109, TIBC is low at 223, %sat normal at 49 FOBT is positive Protonix gtt discontinued, PTX 40 mg IVP daily will start tomorrow Fall precautions Tele monitor Near syncope Likely due to combination of anemia, dehydration, poor oral intake secondary to tonsillectomy Pt on telemonitor CXR shows no active pulmonary disease SHRUTHI is negative EKG shows QTc prolongation at 515, short CT interval (106) Magnesium was repleted as below. Pt with short CT interval in the past. Tonsillar bleeding secondary to tonsillectomy (12/29/18) S/p cautery w/Dr. Haddad. ENT, Dr. Haddad, consulted. Recs appreciated No antibiotics at this time Clear Liquid diet NS IVF at 75 mL/hr Morphine 1 mg IVP q4h prn pain changed to Tylenol with Codeine 10 mL PO q6h prn Aspiration precautions Leukocytosis, resolved 13.2 on admission; likely reactive and secondary to decadron in the ED yesterday Pt afebrile, tachycardia secondary to dehydration/anemia/pain blood culture x2 shows no growth for 24 hours Hypomagnesemia, resolved Continue to monitor and replete as needed Hypophosphatemia 2.0 today, will receive potassium phosphate 20 mmol IVPB due to pain on swallowing PPx GI PPx: PTX 40 mg IVP daily SCDs Chemical VTE ppx contraindicated in suspected GI bleed with anemia Clear liquid diet <José Gastelum - Last Filed: 01/08/19 18:01> Objective - Vital Signs/Intake and Output Vital Signs (last 24 hours): Temp Pulse Resp BP Pulse Ox 98.5 F 74 18 122/80 98 01/08/19 17:00 01/08/19 17:00 01/08/19 17:00 01/08/19 17:00 01/08/19 15:20 Intake and Output: 01/08/19 01/08/19 06:59 18:59 Intake Total 875 1480 Balance 875 1480 - Medications Medications: Current Medications Acetaminophen/Codeine Phosphate (Tylenol/Codeine Elixir) 10 ml PO Q6 PRN PRN Reason: Pain, moderate (4-7) Stop: 01/15/19 09:28 Last Admin: 01/08/19 14:04 Dose: 10 ml Dextrose (Glutose 15) 0 gm PO ONCE PRN; Protocol PRN Reason: Hypoglycemia Protocol Dextrose (Dextrose 50% Inj) 0 ml IV STAT PRN; Protocol PRN Reason: Hypoglycemia Protocol Glucagon (Glucagen Diagnostic Kit) 0 mg IM STAT PRN; Protocol PRN Reason: Hypoglycemia Protocol Dextrose (Dextrose 5% In Water 1000 Ml) 1,000 mls @ 0 mls/hr IV .Q0M PRN; Protocol PRN Reason: Hypoglycemia Protocol Sodium Chloride (Sodium Chloride 0.9%) 1,000 mls @ 75 mls/hr IV .[id number] FRACISCO Potassium Phosphate 20 mmole/ (Sodium Chloride) 256.6667 mls @ 63 mls/hr IV ONCE ONE Stop: 01/08/19 21:33 Pantoprazole Sodium (Protonix Inj) 40 mg IVP DAILY FRACISCO - Labs Labs: 01/08/19 11:55 01/08/19 07:20 PT 12.5 SECONDS (9.7-12.2) H 01/08/19 07:20 INR 1.1 01/08/19 07:20 APTT 30 SECONDS (21-34) 01/08/19 07:20 Attending/Attestation - Attestation I have personally seen and examined this patient.: Yes I have fully participated in the care of the patient.: Yes I have reviewed all pertinent clinical information, including history, physical exam and plan: Yes
[2019-01-08 08:04] LABS: INR 1.1; PROTHROMBIN TIME 12.5 SECONDS (9.7-12.2)
[2019-01-08 08:07] LABS: BASO # 0.1 K/uL (0.0-0.2); BASO % 0.9 % (0.0-2.0); EOS # 0.2 K/uL (0.0-0.7); EOS % 1.8 % (0.0-4.0); HEMOGLOBIN 8.4 g/dL (11.0-16.0); LYMPH # 4.1 K/uL (1.0-4.3); LYMPH % 45.2 % (20.0-40.0); MEAN CELL VOLUME 92.5 fL (81.0-99.0); MEAN CORPUSCULAR HGB CONC 33.5 g/dL (33.0-37.0); MEAN PLATELET VOLUME 8.9 fL (7.2-11.7); MONO # 0.7 K/uL (0.0-0.8); MONO % 8.2 % (0.0-10.0); NEUT # 3.9 K/uL (1.8-7.0); NEUT % 43.9 % (50.0-75.0); NRBC % 0.1 % (0.0-2.0); RBC 2.72 Mil/uL (3.80-5.20); RED CELL DISTRIBUTION WIDTH 13.5 % (11.5-14.5)
[2019-01-08 08:21] LABS: ALB/GLOB RATIO 1.2 (1.0-2.1); ALBUMIN 2.9 g/dL (3.5-5.0); ALT/SGPT 15 U/L (9-52); AST/SGOT 19 U/L (14-36); BLOOD UREA NITROGEN 25 mg/dL (7-17); CALCIUM 8.2 mg/dl (8.6-10.4); GFR NON-AFRICAN AMERICAN > 60
[2019-01-08] MEDS: Acetaminophen/Codeine elixir 120-12mg/5ml PO PRN ×2 (10:05→14:04)
[2019-01-08] MEDS: Pantoprazole 80 MG in Sodium Chloride 0.9% 100 ML IVPB SCH ×2 (10:54→11:34)
[2019-01-08] MEDS ORDERED: Potassium Phosphate 20 MMOLE in Sodium Chloride 0.9% 250 ML IV ONE ×2 (11:00→17:35)
--- NOTE | 2019-01-08 11:32 | CP.PCM.CON ---
History of Present Illness - History of Present Illness History of Present Illness: This is a 33 year old woman with anemia. Patient has tonsillectomy 12/29/2018 and was admitted 01/07/2019 with bleeding and clots from the mouth. HGB on admission was 9.7 and decreased to 8.4 overnight. She felt lightheaded before coming to the hospital and may have lost consciousness. She had two dark bowel movements yesterday. Patient denies having abdominal pain, nausea, vomiting, heartburn, loss of appetite, bright red blood per rectum. She has a sore throat following surgery. She has not been able to swallow because of post-operative pain. She has been constipated due to decreased oral intake. Review of Systems - Review of Systems All systems: reviewed and no additional remarkable complaints except - Constitutional Constitutional: absent: Chills, Fever - EENT Nose/Mouth/Throat: Mouth Pain - Respiratory Respiratory: absent: Cough - Gastrointestinal Gastrointestinal: Constipation, Dysphagia, Melena. absent: Abdominal Pain, Heartburn, Hematochezia, Nausea, Vomiting - Integumentary Integumentary: absent: Rash - Neurological Neurological: absent: Numbness, Weakness Past Patient History - Infectious Disease Hx of Infectious Diseases: None - Past Medical History & Family History Past Medical History?: Yes - Past Social History Smoking Status: Never Smoked - MUSCULOSKELETAL/RHEUMATOLOGICAL Hx Falls: No - PSYCHIATRIC Hx Substance Use: No - SURGICAL HISTORY Hx Tonsillectomy: Yes - ANESTHESIA Hx Anesthesia: Yes Hx Anesthesia Reactions: No Meds Allergies/Adverse Reactions: Allergies Allergy/AdvReac Type Severity Reaction Status Date / Time amoxicillin Allergy RASH Verified 01/07/19 07:21 - Medications Medications: Current Medications Acetaminophen/Codeine Phosphate (Tylenol/Codeine Elixir) 10 ml PO Q6 PRN PRN Reason: Pain, moderate (4-7) Stop: 01/15/19 09:28 Last Admin: 01/08/19 10:05 Dose: 10 ml Dextrose (Glutose 15) 0 gm PO ONCE PRN; Protocol PRN Reason: Hypoglycemia Protocol Dextrose (Dextrose 50% Inj) 0 ml IV STAT PRN; Protocol PRN Reason: Hypoglycemia Protocol Glucagon (Glucagen Diagnostic Kit) 0 mg IM STAT PRN; Protocol PRN Reason: Hypoglycemia Protocol Lactated Ringer's (Lactated Ringer's) 1,000 mls @ 1,000 mls/hr IV .Q1H PRN PRN Reason: Hypotension Pantoprazole Sodium 80 mg/ (Sodium Chloride) 100 mls @ 10 mls/hr IVPB .Q10H [facility] Last Admin: 01/07/19 13:10 Dose: 70 mls Dextrose (Dextrose 5% In Water 1000 Ml) 1,000 mls @ 0 mls/hr IV .Q0M PRN; Protocol PRN Reason: Hypoglycemia Protocol Sodium Chloride (Sodium Chloride 0.9%) 1,000 mls @ 100 mls/hr IV .Q10H [facility] Last Admin: 01/08/19 01:55 Dose: 100 mls/hr Pantoprazole Sodium (Protonix Inj) 40 mg IVP DAILY [facility] Physical Exam - Head Exam Head Exam: ATRAUMATIC, NORMOCEPHALIC - Eye Exam Eye Exam: EOMI, PERRL - Neck Exam Neck exam: Negative for: Lymphadenopathy, Thyromegaly - Respiratory Exam Respiratory Exam: NORMAL BREATHING PATTERN. absent: Rales, Rhonchi, Wheezes - Cardiovascular Exam Cardiovascular Exam: REGULAR RHYTHM, +S1, +S2. absent: Gallop, Rubs, Systolic Murmur - GI/Abdominal Exam GI & Abdominal Exam: Normal Bowel Sounds, Soft. absent: Mass, Organomegaly, Tenderness - Rectal Exam Rectal Exam: Deferred - Extremities Exam Extremities exam: Negative for: calf tenderness, pedal edema Results - Vital Signs Recent Vital Signs: Last Vital Signs Temp 98.2 F 01/08/19 07:00 Pulse 95 H 01/08/19 08:40 Resp 20 01/08/19 07:00 BP 117/76 01/08/19 07:00 Pulse Ox 99 01/08/19 07:00 - Labs Result Diagrams: 01/08/19 07:20 01/08/19 07:20 Labs: Laboratory Results - last 24 hr 01/07/19 01/07/19 01/07/19 10:45 10:45 11:52 WBC RBC Hgb Hct MCV MCH MCHC RDW Plt Count MPV Neut % (Auto) Lymph % (Auto) [place] % (Auto) Eos % (Auto) Baso % (Auto) Neut # (Auto) Lymph # (Auto) [place] # (Auto) Eos # (Auto) Baso # (Auto) Retic Count PT INR APTT Sodium 134 Potassium 4.9 Chloride 107 Carbon Dioxide 23 Anion Gap 9 L BUN 41 H Creatinine 1.0 Est GFR ( Amer) > 60 Est GFR (Non-Af Amer) > 60 POC Glucose (mg/dL) Random Glucose 137 H Hemoglobin A1c Calcium 8.3 L Phosphorus 4.0 Magnesium 1.5 L Iron TIBC % Saturation Transferrin Ferritin 76.5 Total Bilirubin 0.4 AST 13 L ALT 18 Alkaline Phosphatase 41 Total Creatine Kinase CK-MB (Mass) Troponin I Total Protein 6.0 L Albumin 3.4 L Globulin 2.6 Albumin/Globulin Ratio 1.3 Procalcitonin Urine Color Urine Clarity Urine pH Ur Specific [place] Urine Protein Urine Glucose (UA) Urine Ketones Urine Blood Urine Nitrate Urine Bilirubin Urine Urobilinogen Ur Leukocyte Esterase Urine WBC (Auto) Urine RBC (Auto) Ur Squamous Epith Cells Urine Bacteria Hyaline Casts WBC Casts Stool Occult Blood Positive H Blood Type O NEGATIVE Blood Type Confirm O NEGATIVE Antibody Screen Negative 01/07/19 01/07/19 01/07/19 11:52 12:12 15:37 WBC RBC Hgb Hct MCV MCH MCHC RDW Plt Count MPV Neut % (Auto) Lymph % (Auto) [place] % (Auto) Eos % (Auto) Baso % (Auto) Neut # (Auto) Lymph # (Auto) [place] # (Auto) Eos # (Auto) Baso # (Auto) Retic Count PT INR APTT Sodium Potassium Chloride Carbon Dioxide Anion Gap BUN Creatinine Est GFR ( Amer) Est GFR (Non-Af Amer) POC Glucose (mg/dL) Random Glucose Hemoglobin A1c Calcium Phosphorus Magnesium Iron 109 TIBC 223 L % Saturation 49 Transferrin 159.73 L Ferritin Total Bilirubin AST ALT Alkaline Phosphatase Total Creatine Kinase CK-MB (Mass) Troponin I Total Protein Albumin Globulin Albumin/Globulin Ratio Procalcitonin Urine Color Yellow Urine Clarity Hazy Urine pH 5.0 Ur Specific [place] 1.017 Urine Protein Negative Urine Glucose (UA) Normal Urine Ketones Trace Urine Blood Negative Urine Nitrate Negative Urine Bilirubin Negative Urine Urobilinogen Normal Ur Leukocyte Esterase Neg Urine WBC (Auto) 5 Urine RBC (Auto) 1 Ur Squamous Epith Cells 1 Urine Bacteria Rare Hyaline Casts 0-2 WBC Casts 3 Stool Occult Blood Blood Type Blood Type Confirm Antibody Screen 01/07/19 01/07/19 01/07/19 15:37 15:37 16:31 WBC 8.2 RBC 2.98 L Hgb 8.9 L Hct 27.6 L MCV 92.5 MCH 30.0 MCHC 32.4 L RDW 12.9 Plt Count 259 MPV 7.7 Neut % (Auto) 79.9 H Lymph % (Auto) 16.8 L [place] % (Auto) 3.0 Eos % (Auto) 0.1 Baso % (Auto) 0.2 Neut # (Auto) 6.6 Lymph # (Auto) 1.4 [place] # (Auto) 0.2 Eos # (Auto) 0.0 Baso # (Auto) 0.0 Retic Count 0.3 L PT INR APTT Sodium Potassium Chloride Carbon Dioxide Anion Gap BUN Creatinine Est GFR ( Amer) Est GFR (Non-Af Amer) POC Glucose (mg/dL) Random Glucose Hemoglobin A1c Calcium Phosphorus Magnesium Iron TIBC % Saturation Transferrin Ferritin Total Bilirubin AST ALT Alkaline Phosphatase Total Creatine Kinase CK-MB (Mass) Troponin I Total Protein Albumin Globulin Albumin/Globulin Ratio Procalcitonin < 0.05 L Urine Color Urine Clarity Urine pH Ur Specific [place] Urine Protein Urine Glucose (UA) Urine Ketones Urine Blood Urine Nitrate Urine Bilirubin Urine Urobilinogen Ur Leukocyte Esterase Urine WBC (Auto) Urine RBC (Auto) Ur Squamous Epith Cells Urine Bacteria Hyaline Casts WBC Casts Stool Occult Blood Blood Type Blood Type Confirm Antibody Screen 01/07/19 01/07/19 01/07/19 16:35 18:00 19:13 WBC 8.6 RBC 2.82 L Hgb 8.4 L Hct 26.3 L MCV 93.3 MCH 29.8 MCHC 32.0 L RDW 12.9 Plt Count 253 MPV 8.6 Neut % (Auto) 60.0 Lymph % (Auto) 29.8 [place] % (Auto) 9.5 Eos % (Auto) 0.2 Baso % (Auto) 0.5 Neut # (Auto) 5.2 Lymph # (Auto) 2.6 [place] # (Auto) 0.8 Eos # (Auto) 0.0 Baso # (Auto) 0.0 Retic Count PT INR APTT Sodium Potassium Chloride Carbon Dioxide Anion Gap BUN Creatinine Est GFR ( Amer) Est GFR (Non-Af Amer) POC Glucose (mg/dL) 113 H Random Glucose Hemoglobin A1c Calcium Phosphorus Magnesium Iron TIBC % Saturation Transferrin Ferritin Total Bilirubin AST ALT Alkaline Phosphatase Total Creatine Kinase 39 CK-MB (Mass) 0.67 Troponin I 0.0480 Total Protein Albumin Globulin Albumin/Globulin Ratio Procalcitonin Urine Color Urine Clarity Urine pH Ur Specific [place] Urine Protein Urine Glucose (UA) Urine Ketones Urine Blood Urine Nitrate Urine Bilirubin Urine Urobilinogen Ur Leukocyte Esterase Urine WBC (Auto) Urine RBC (Auto) Ur Squamous Epith Cells Urine Bacteria Hyaline Casts WBC Casts Stool Occult Blood Blood Type Blood Type Confirm Antibody Screen 01/08/19 01/08/19 01/08/19 07:20 07:20 07:20 WBC 9.0 RBC 2.72 L Hgb 8.4 L Hct 25.2 L MCV 92.5 MCH 31.0 MCHC 33.5 RDW 13.5 Plt Count 205 MPV 8.9 Neut % (Auto) 43.9 L Lymph % (Auto) 45.2 H [place] % (Auto) 8.2 Eos % (Auto) 1.8 Baso % (Auto) 0.9 Neut # (Auto) 3.9 Lymph # (Auto) 4.1 [place] # (Auto) 0.7 Eos # (Auto) 0.2 Baso # (Auto) 0.1 Retic Count PT 12.5 H INR 1.1 APTT 30 Sodium 142 Potassium 3.9 Chloride 113 H Carbon Dioxide 24 Anion Gap 9 L BUN 25 H Creatinine 0.6 L Est GFR ( Amer) > 60 Est GFR (Non-Af Amer) > 60 POC Glucose (mg/dL) Random Glucose 87 D Hemoglobin A1c Calcium 8.2 L Phosphorus 2.0 L Magnesium 1.7 Iron TIBC % Saturation Transferrin Ferritin Total Bilirubin 0.7 AST 19 ALT 15 Alkaline Phosphatase 36 L Total Creatine Kinase CK-MB (Mass) Troponin I Total Protein 5.2 L Albumin 2.9 L Globulin 2.3 Albumin/Globulin Ratio 1.2 Procalcitonin Urine Color Urine Clarity Urine pH Ur Specific [place] Urine Protein Urine Glucose (UA) Urine Ketones Urine Blood Urine Nitrate Urine Bilirubin Urine Urobilinogen Ur Leukocyte Esterase Urine WBC (Auto) Urine RBC (Auto) Ur Squamous Epith Cells Urine Bacteria Hyaline Casts WBC Casts Stool Occult Blood Blood Type Blood Type Confirm Antibody Screen 01/08/19 07:20 WBC RBC Hgb Hct MCV MCH MCHC RDW Plt Count MPV Neut % (Auto) Lymph % (Auto) [place] % (Auto) Eos % (Auto) Baso % (Auto) Neut # (Auto) Lymph # (Auto) [place] # (Auto) Eos # (Auto) Baso # (Auto) Retic Count PT INR APTT Sodium Potassium Chloride Carbon Dioxide Anion Gap BUN Creatinine Est GFR ( Amer) Est GFR (Non-Af Amer) POC Glucose (mg/dL) Random Glucose Hemoglobin A1c 5.7 Calcium Phosphorus Magnesium Iron TIBC % Saturation Transferrin Ferritin Total Bilirubin AST ALT Alkaline Phosphatase Total Creatine Kinase CK-MB (Mass) Troponin I Total Protein Albumin Globulin Albumin/Globulin Ratio Procalcitonin Urine Color Urine Clarity Urine pH Ur Specific [place] Urine Protein Urine Glucose (UA) Urine Ketones Urine Blood Urine Nitrate Urine Bilirubin Urine Urobilinogen Ur Leukocyte Esterase Urine WBC (Auto) Urine RBC (Auto) Ur Squamous Epith Cells Urine Bacteria Hyaline Casts WBC Casts Stool Occult Blood Blood Type Blood Type Confirm Antibody Screen Assessment & Plan (1) Melena Assessment and Plan: Patient had significant bleeding post tonsillectomy followed by passing dark stools. The melena is most likely due to swallowed blood. Although she has been taking ibuprofen for several days, peptic ulcer disease is less likely. I agree with using pantoprazole. Follow CBC and transfuse if HGB falls to below 7.0. Status: Acute
[2019-01-08 12:10] LABS: MEAN CELL VOLUME 92.1 fL (81.0-99.0); MEAN CORPUSCULAR HEMOGLOBIN 30.3 pg (27.0-31.0); MEAN CORPUSCULAR HGB CONC 32.9 g/dL (33.0-37.0); MEAN PLATELET VOLUME 8.6 fL (7.2-11.7); RBC 2.63 Mil/uL (3.80-5.20); RED CELL DISTRIBUTION WIDTH 13.3 % (11.5-14.5); WHITE BLOOD COUNT 8.2 K/uL (4.8-10.8)
--- NOTE | 2019-01-08 12:38 | CARD ---
APPROVED REPORT Date of service: 01/07/2019 EKG Measurement Heart [id number] <Conclusion> Sinus rhythm with short LA Nonspecific ST abnormality Prolonged QT Abnormal ECG
[2019-01-08] MEDS ORDERED: Sodium Chloride 0.9% 1,000 ML IV SCH (17:25)
[2019-01-08] MEDS ORDERED: Acetaminophen/Codeine elixir 120-12mg/5ml PO PRN (19:02)
[2019-01-08] MEDS: oxyCODONE 10 mg ER Tab (oxyCONTIN) PO SCH (20:59)
[2019-01-08] MEDS: Docusate-Senna 50 mg-8.6 mg Tab PO SCH (21:03)
[2019-01-09 02:09] VITALS: RESP 20
--- NOTE | 2019-01-09 07:40 | CP.PCM.PN ---
Subjective - Date & Time of Evaluation Date of Evaluation: 01/09/19 Time of Evaluation: 07:39 - Subjective Subjective: Medicine Progress note for Dr. Gastelum Pt seen and examined at bedside. Pt reports continues throat pain, now complains of bilateral ear pain, frontal throat pain, frontal headache. Pain states that the pain is about the same as yesterday. Denies fever, chills, chest pain, sob, palpitations, drooling, hemoptysis, bleeding from the throat, lightheadedness, dizziness. Pt continues to not have a bowel movement but is on clear liquid d iet. Objective - Vital Signs/Intake and Output Vital Signs (last 24 hours): Temp Pulse Resp BP Pulse Ox 97.7 F 79 20 120/77 98 01/09/19 06:07 01/09/19 06:07 01/09/19 06:07 01/09/19 06:07 01/09/19 06:07 Intake and Output: 01/09/19 01/09/19 06:59 18:59 Intake Total 1512 Balance 1512 - Medications Medications: Current Medications Acetaminophen/Codeine Phosphate (Tylenol/Codeine Elixir) 10 ml PO Q4H PRN PRN Reason: breakthrough pain Stop: 01/15/19 19:16 Dextrose (Glutose 15) 0 gm PO ONCE PRN; Protocol PRN Reason: Hypoglycemia Protocol Dextrose (Dextrose 50% Inj) 0 ml IV STAT PRN; Protocol PRN Reason: Hypoglycemia Protocol Glucagon (Glucagen Diagnostic Kit) 0 mg IM STAT PRN; Protocol PRN Reason: Hypoglycemia Protocol Dextrose (Dextrose 5% In Water 1000 Ml) 1,000 mls @ 0 mls/hr IV .Q0M PRN; Protocol PRN Reason: Hypoglycemia Protocol Sodium Chloride (Sodium Chloride 0.9%) 1,000 mls @ 75 mls/hr IV .[id number] [facility] Last Admin: 01/08/19 18:24 Dose: 75 mls/hr Oxycodone HCl (Oxycontin Extended Release Tab) 10 mg PO Q12 [facility] Stop: 01/11/19 19:05 Last Admin: 01/08/19 20:59 Dose: 10 mg Pantoprazole Sodium (Protonix Inj) 40 mg IVP DAILY [facility] Senna/Docusate Sodium (Senokot S 50 Mg-8.6 Mg) 1 tab PO BID [facility] Last Admin: 01/08/19 21:03 Dose: Not Given - Labs Labs: 01/08/19 11:55 01/08/19 07:20 PT 12.5 SECONDS (9.7-12.2) H 01/08/19 07:20 INR 1.1 01/08/19 07:20 APTT 30 SECONDS (21-34) 01/08/19 07:20 - Additional Findings Additional findings: - Constitutional Appears: Non-toxic, No Acute Distress - Head Exam Head Exam: ATRAUMATIC, NORMAL INSPECTION - Eye Exam Eye Exam: EOMI, Normal appearance - ENT Exam ENT Exam: Mucous Membranes Moist Additional comments: no bleeding noted, dried or fresh pharyngeal erythema pt cannot open her mouth completely pain on palpation of anterior cervical lymph chain (right greater than left) - Neck Exam Neck Exam: Normal Inspection. - Respiratory Exam Respiratory Exam: absent: Rales, Rhonchi, Wheezes, Stridor - Cardiovascular Exam Cardiovascular Exam: REGULAR RHYTHM, +S1, +S2. absent: Tachycardia - GI/Abdominal Exam GI & Abdominal Exam: Soft, Normal Bowel Sounds. absent: Firm, Guarding, Rigid, Tenderness - Extremities Exam Extremities Exam: Normal Inspection. absent: Calf Tenderness, Pedal Edema - Back Exam Back Exam: NORMAL INSPECTION. absent: CVA tenderness (L), CVA tenderness (R) - Neurological Exam Neurological Exam: Alert, Awake - Psychiatric Exam Psychiatric exam: Normal Affect, Normal Mood - Skin Skin Exam: Dry, Intact, Normal Color, Warm Assessment and Plan - Assessment and Plan (Free Text) Assessment: 33 year old female s/p cautery with PSHx of peritonsillar abscess I and D and tonsillectomy presented this AM for blood pooling in the mouth and associated throat pain. Plan: Anemia, normocytic FOBT positive likely secondary to bleeding from tonsillectomy traveling through GI tract Hgb 9.7 on admission Pt's baseline is 11-12 Hgb today is 8.0 (down from 8.4 s/p transfusion, likely secondary to hemodilution) Gastroenterology, Dr. Solo, consulted. Recs appreciated. The melena is most likely due to swallowed blood. Although she has been taking ibuprofen for several days, peptic ulcer disease is less likely. Type and cross for 2 units s/p 1 unit pRBC 01/07/19 1 unit pRBC 01/08/19 INR is 1.2 Ferritin is normal at 76.5, transferrin is low at 159.73 Iron normal at 109, TIBC is low at 223, %sat normal at 49 FOBT is positive PTX 40 mg IVP daily Fall precautions Tele monitor Near syncope Likely due to combination of anemia, dehydration, poor oral intake secondary to tonsillectomy Pt on telemonitor CXR shows no active pulmonary disease SHRUTHI is negative EKG shows QTc prolongation at 515, short AK interval (106) Magnesium was repleted as below. Pt with short AK interval in the past. Tonsillar bleeding secondary to tonsillectomy (12/29/18) S/p cautery w/Dr. Haddad. ENT, Dr. Haddad, consulted. Recs appreciated No antibiotics at this time Clear Liquid diet NS IVF at 75 mL/hr Oxycodone 10 mg SR PO Q12 Tylenol with codeine 10 mL PO q4h prn breakthrough pain. Aspiration precautions Leukocytosis, resolved 13.2 on admission; likely reactive and secondary to decadron in the ED Pt afebrile, not tachycardic blood culture x2 shows no growth for 24 hours Hypomagnesemia, resolved Continue to monitor and replete as needed Hypophosphatemia Continue to monitor and replete as needed PPx GI PPx: PTX 40 mg IVP daily SCDs Chemical VTE ppx contraindicated in suspected GI bleed with anemia Clear liquid diet
--- NOTE | 2019-01-09 08:08 | CP.PCM.PN ---
Subjective - Date & Time of Evaluation Date of Evaluation: 01/09/19 Time of Evaluation: 08:06 - Subjective Subjective: Patient continues to complain of sore throat. She denies having nausea, vomiting, abdominal pain. She has not had a bowel movement so far today. Objective - Vital Signs/Intake and Output Vital Signs (last 24 hours): Temp Pulse Resp BP Pulse Ox 97.7 F 79 20 120/77 98 01/09/19 06:07 01/09/19 06:07 01/09/19 06:07 01/09/19 06:07 01/09/19 06:07 Intake and Output: 01/09/19 01/09/19 06:59 18:59 Intake Total 1512 Balance 1512 - Medications Medications: Current Medications Acetaminophen/Codeine Phosphate (Tylenol/Codeine Elixir) 10 ml PO Q4H PRN PRN Reason: breakthrough pain Stop: 01/15/19 19:16 Dextrose (Glutose 15) 0 gm PO ONCE PRN; Protocol PRN Reason: Hypoglycemia Protocol Dextrose (Dextrose 50% Inj) 0 ml IV STAT PRN; Protocol PRN Reason: Hypoglycemia Protocol Glucagon (Glucagen Diagnostic Kit) 0 mg IM STAT PRN; Protocol PRN Reason: Hypoglycemia Protocol Dextrose (Dextrose 5% In Water 1000 Ml) 1,000 mls @ 0 mls/hr IV .Q0M PRN; Protocol PRN Reason: Hypoglycemia Protocol Sodium Chloride (Sodium Chloride 0.9%) 1,000 mls @ 75 mls/hr IV .[id number] [facility] Last Admin: 01/08/19 18:24 Dose: 75 mls/hr Oxycodone HCl (Oxycontin Extended Release Tab) 10 mg PO Q12 [facility] Stop: 01/11/19 19:05 Last Admin: 01/08/19 20:59 Dose: 10 mg Pantoprazole Sodium (Protonix Inj) 40 mg IVP DAILY [facility] Senna/Docusate Sodium (Senokot S 50 Mg-8.6 Mg) 1 tab PO BID [facility] Last Admin: 01/08/19 21:03 Dose: Not Given - Labs Labs: 01/08/19 11:55 01/08/19 07:20 PT 12.5 SECONDS (9.7-12.2) H 01/08/19 07:20 INR 1.1 01/08/19 07:20 APTT 30 SECONDS (21-34) 01/08/19 07:20 - Constitutional Appears: No Acute Distress - Head Exam Head Exam: ATRAUMATIC, NORMOCEPHALIC - Eye Exam Eye Exam: EOMI, PERRL - Neck Exam Neck Exam: absent: Lymphadenopathy, Thyromegaly - Respiratory Exam Respiratory Exam: NORMAL BREATHING PATTERN. absent: Rales, Rhonchi, Wheezes - Cardiovascular Exam Cardiovascular Exam: REGULAR RHYTHM, +S1, +S2. absent: Gallop, Rubs, Murmur - GI/Abdominal Exam GI & Abdominal Exam: Soft, Normal Bowel Sounds. absent: Tenderness, Mass, Organomegaly - Rectal Exam Rectal Exam: Deferred - Extremities Exam Extremities Exam: absent: Calf Tenderness, Pedal Edema Assessment and Plan (1) Melena Assessment & Plan: HGB declined slightly from 8.4 to 8.0 yesterday. Blood work from today is still pending. She has not had any further episodes of melena. Will continue to follow CBC and transfuse for HGB < 7.0. Status: Acute
[2019-01-09 08:27] LABS: BASO # 0.1 K/uL (0.0-0.2); EOS # 0.2 K/uL (0.0-0.7); EOS % 4.2 % (0.0-4.0); HEMOGLOBIN 8.7 g/dL (11.0-16.0); LYMPH # 3.3 K/uL (1.0-4.3); LYMPH % 55.7 % (20.0-40.0); MEAN CORPUSCULAR HEMOGLOBIN 30.3 pg (27.0-31.0); MONO # 0.5 K/uL (0.0-0.8); MONO % 7.7 % (0.0-10.0); NEUT # 1.9 K/uL (1.8-7.0); NEUT % 31.4 % (50.0-75.0); NRBC % 0.2 % (0.0-2.0); RBC 2.88 Mil/uL (3.80-5.20); RED CELL DISTRIBUTION WIDTH 13.8 % (11.5-14.5); WHITE BLOOD COUNT 5.9 K/uL (4.8-10.8)
[2019-01-09 08:40] LABS: ALB/GLOB RATIO 1.3 (1.0-2.1); ALT/SGPT 11 U/L (9-52); AST/SGOT 16 U/L (14-36); BLOOD UREA NITROGEN 14 mg/dL (7-17); CALCIUM 8.3 mg/dl (8.6-10.4); GFR NON-AFRICAN AMERICAN > 60
[2019-01-09] MEDS: oxyCODONE 10 mg ER Tab (oxyCONTIN) PO SCH (10:25)
[2019-01-09] MEDS: Docusate-Senna 50 mg-8.6 mg Tab PO SCH (10:25)
[2019-01-09] MEDS: Magnesium Sulfate 1 gm in D5W 1 GM/100 ML BAG IVPB SCH (13:24)
[2019-01-09 14:29] LABS: HEMOGLOBIN 9.6 g/dL (11.0-16.0); MEAN CELL VOLUME 92.4 fL (81.0-99.0); MEAN CORPUSCULAR HEMOGLOBIN 30.9 pg (27.0-31.0); MEAN CORPUSCULAR HGB CONC 33.5 g/dL (33.0-37.0); MEAN PLATELET VOLUME 8.5 fL (7.2-11.7); RBC 3.12 Mil/uL (3.80-5.20); RED CELL DISTRIBUTION WIDTH 13.8 % (11.5-14.5); WHITE BLOOD COUNT 7.3 K/uL (4.8-10.8)
[2019-01-09 17:09] VITALS: BP 123/77; PULSE 83; TEMP 98; O2SAT 98
--- NOTE | 2019-01-09 18:30 | CP.PCM.DIS ---
Provider - Provider Date of Admission: 01/07/19 10:50 Attending physician: Carmen Doyle DO Consults: 01/07/19 08:25 Hospitalist Consult Routine Comment: Consulting Provider: Chuck Haddad Consulting Physician: Chuck Haddad Reason for Consult: post tonsillectomy bleeding. had vasovagal episode 01/07/19 11:43 Gastroenterology Consult Routine Comment: Consulting Provider: Enoc Solo Consulting Physician: Enoc Solo Reason for Consult: melena, anemia, hgb 9.7 (baseline 11-12), hx of recent nsaid use Time Spent in preparation of Discharge (in minutes): 35 Hospital Course - Lab Results Lab Results: Micro Results 01/07/19 16:05 Blood-Venous Blood Culture - Preliminary NO GROWTH AFTER 48 HOURS 01/07/19 16:00 Blood-Venous Blood Culture - Preliminary NO GROWTH AFTER 48 HOURS Most Recent Lab Values WBC 7.3 K/uL (4.8-10.8) 01/09/19 14:26 RBC 3.12 Mil/uL (3.80-5.20) L 01/09/19 14:26 Hgb 9.6 g/dL (11.0-16.0) L 01/09/19 14:26 Hct 28.8 % (34.0-47.0) L 01/09/19 14:26 MCV 92.4 fL (81.0-99.0) 01/09/19 14:26 MCH 30.9 pg (27.0-31.0) 01/09/19 14:26 MCHC 33.5 g/dL (33.0-37.0) 01/09/19 14:26 RDW 13.8 % (11.5-14.5) 01/09/19 14:26 Plt Count 183 K/uL (130-400) 01/09/19 14:26 MPV 8.5 fL (7.2-11.7) 01/09/19 14:26 Neut % (Auto) 31.4 % (50.0-75.0) L 01/09/19 08:10 Lymph % (Auto) 55.7 % (20.0-40.0) H 01/09/19 08:10 [place] % (Auto) 7.7 % (0.0-10.0) 01/09/19 08:10 Eos % (Auto) 4.2 % (0.0-4.0) H 01/09/19 08:10 Baso % (Auto) 1.0 % (0.0-2.0) 01/09/19 08:10 Neut # (Auto) 1.9 K/uL (1.8-7.0) 01/09/19 08:10 Lymph # (Auto) 3.3 K/uL (1.0-4.3) 01/09/19 08:10 [place] # (Auto) 0.5 K/uL (0.0-0.8) 01/09/19 08:10 Eos # (Auto) 0.2 K/uL (0.0-0.7) 01/09/19 08:10 Baso # (Auto) 0.1 K/uL (0.0-0.2) 01/09/19 08:10 Retic Count 0.3 % (0.5-1.5) L 01/07/19 15:37 PT 12.5 SECONDS (9.7-12.2) H 01/08/19 07:20 INR 1.1 01/08/19 07:20 APTT 30 SECONDS (21-34) 01/08/19 07:20 Sodium 136 mmol/L (132-148) 01/09/19 08:10 Potassium 3.6 mmol/L (3.6-5.2) 01/09/19 08:10 Chloride 107 mmol/L (98-107) 01/09/19 08:10 Carbon Dioxide 25 mmol/L (22-30) 01/09/19 08:10 Anion Gap 8 (10-20) L 01/09/19 08:10 BUN 14 mg/dL (7-17) 01/09/19 08:10 Creatinine 0.5 mg/dL (0.7-1.2) L 01/09/19 08:10 Est GFR ( Amer) > 60 01/09/19 08:10 Est GFR (Non-Af Amer) > 60 01/09/19 08:10 POC Glucose (mg/dL) 91 mg/dL (65-110) 01/09/19 11:19 Random Glucose 87 mg/dL (65-105) 01/09/19 08:10 Hemoglobin A1c 5.7 % (4.2-6.5) 01/08/19 07:20 Calcium 8.3 mg/dl (8.6-10.4) L 01/09/19 08:10 Phosphorus 3.1 mg/dL (2.5-4.5) 01/09/19 08:10 Magnesium 1.4 mg/dL (1.6-2.3) L 01/09/19 08:10 Iron 109 ug/dL (37-170) 01/07/19 15:37 TIBC 223 ug/dL (250-450) L 01/07/19 15:37 % Saturation 49 (20-55) 01/07/19 15:37 Transferrin 159.73 mg/dL (206-381) L 01/07/19 12:12 Ferritin 76.5 ng/mL 01/07/19 10:45 Total Bilirubin 0.4 mg/dL (0.2-1.3) 01/09/19 08:10 AST 16 U/L (14-36) 01/09/19 08:10 ALT 11 U/L (9-52) 01/09/19 08:10 Alkaline Phosphatase 37 U/L (38-126) L 01/09/19 08:10 Total Creatine Kinase 39 U/L (30-135) 01/07/19 16:35 CK-MB (Mass) 0.67 ng/mL (0.0-3.38) 01/07/19 16:35 Troponin I 0.0480 ng/mL (0.00-0.120) 01/07/19 16:35 Total Protein 5.2 g/dL (6.3-8.3) L 01/09/19 08:10 Albumin 3.0 g/dL (3.5-5.0) L 01/09/19 08:10 Globulin 2.3 gm/dL (2.2-3.9) 01/09/19 08:10 Albumin/Globulin Ratio 1.3 (1.0-2.1) 01/09/19 08:10 Procalcitonin < 0.05 NG/ML (0.19-0.49) L 01/07/19 16:31 Beta HCG, Quant < 2.39 mIU/ML 01/07/19 10:45 Urine Color Yellow (YELLOW) 01/07/19 11:52 Urine Clarity Hazy (Clear) 01/07/19 11:52 Urine pH 5.0 (5.0-8.0) 01/07/19 11:52 Ur Specific [place] 1.017 (1.003-1.030) 01/07/19 11:52 Urine Protein Negative mg/dL (NEGATIVE) 01/07/19 11:52 Urine Glucose (UA) Normal mg/dL (Normal) 01/07/19 11:52 Urine Ketones Trace mg/dL (NEGATIVE) 01/07/19 11:52 Urine Blood Negative (NEGATIVE) 01/07/19 11:52 Urine Nitrate Negative (NEGATIVE) 01/07/19 11:52 Urine Bilirubin Negative (NEGATIVE) 01/07/19 11:52 Urine Urobilinogen Normal mg/dL (0.2-1.0) 01/07/19 11:52 Ur Leukocyte Esterase Neg Kiet/uL (Negative) 01/07/19 11:52 Urine WBC (Auto) 5 /hpf (0-5) 01/07/19 11:52 Urine RBC (Auto) 1 /hpf (0-3) 01/07/19 11:52 Ur Squamous Epith Cells 1 /hpf (0-5) 01/07/19 11:52 Urine Bacteria Rare (<OCC) 01/07/19 11:52 Hyaline Casts 0-2 /lpf (0-2) 01/07/19 11:52 WBC Casts 3 /lpf (0-1) 01/07/19 11:52 Stool Occult Blood Positive (NEGATIVE) H 01/07/19 11:52 Blood Type O NEGATIVE 01/07/19 10:45 Blood Type Confirm O NEGATIVE 01/07/19 10:45 Antibody Screen Negative 01/07/19 10:45 Discharge Exam - Head Exam Head Exam: ATRAUMATIC, NORMOCEPHALIC Discharge Plan - Discharge Medications Prescriptions: Omeprazole 20 mg PO DAILY #30 capsule.dr - Follow Up Plan Condition: STABLE Disposition: HOME/ ROUTINE Instructions: Clear Liquid Diet, Acetaminophen and Codeine, Omeprazole, Bleeding After Surgery Additional Instructions: Pt is medically stable for discharge home as per Dr. Gastelum. Prescriptions needed: Omeprazole 20 mg one tab by mouth once daily at 8 am. Tylenol with Codeine 10 mL by mouth every 6 hours as needed for pain. Please take OTC colace as needed for constipation due to the Tylenol with Codeine. Pt instructed that Dr. Haddad recommended Liquid Motrin as needed for pain. Pt should call Dr. Haddad's office for follow up, within 2 weeks. Pt can advance diet as tolerated, currently recommended to stay on liquid diet due to pain. Should symptoms worsen, please head to the nearest Emergency Department for further evaluation. Instructions explained to the patient, who agrees and understands discharge plan. Referrals: Chuck Haddad MD [Staff Provider] - Enoc Solo MD [Staff Provider] -
== END 2019-01-09 18:00 | disposition home or self-care (01) ==
LOC: C.ER 07:18 → C.SDS 07:18 → UNDOADMIN 07:25 → C.9E 07:25 → C.SDS 07:39 → C.9P 09:34 → C.9E 09:34 → C.9P 09:38 → C.9S 09:38 → EDSTATUS 10:05 → C.9S 10:50 → INTOOBSV 10:50 → C.5S 11:10 → C.9S 12:01 → C.6T 20:27
PROVIDERS: ADMIT Hospitalist; ATTEND Hospitalist
DX: E89.810 Postprocedural hemorrhage of an endocrine system organ or structure following an endocrine system procedure (principal); D64.9 Anemia, unspecified; F41.9 Anxiety disorder, unspecified; K59.00 Constipation, unspecified
CPT/HCPCS: 36415; 36430; 42961; 71045; 80053; 81001; 82728; 82948; 83036; 83735; 84100; 84145; 84466; 84484; 84702; 85025; 85027; 85044; 85610; 85730; 86850; 86900; 86920; 87040; 93005; C9113; G0328; G0378; J1100; J1170; J2001; J2270; J2370; J2405; J2704; J3010; J3475; J7030; J7040; J7120; P9051